=== PATIENT | female | born 1965 | race Caucasian/White ===

== ENCOUNTER 2019-05-03 11:23 | Inpatient (IN) | payer BC ==
[~2019-05-03] VITALS: Ht 170.2 cm; Wt 74.8 kg
[2019-05-03] MEDS ORDERED: ONDANSETRON PF 4 MG/2 ML VIAL. ONE (11:44)
[2019-05-03] MEDS ORDERED: DOXYCYCLINE HYCLATE 100 MG TABLET PO ONE (11:45)
[2019-05-03] MEDS ORDERED: cefTRIAXone IV Push 1 GM VIAL. IVP ONE (11:45)
[2019-05-03] MEDS ORDERED: fentaNYL PF VIAL 100 MCG/2 ML VIAL ONE (11:45)
[2019-05-03] MEDS ORDERED: ONDANSETRON PF 4 MG/2 ML VIAL. IV ONE (11:45)
[2019-05-03] MEDS ORDERED: fentaNYL PF VIAL 100 MCG/2 ML VIAL IV ONE ×2 (11:45→14:45)
--- NOTE | 2019-05-03 11:50 | PHYS DOC ---
Past Medical History Past Medical History: No Pertinent History Past Surgical History: Appendectomy Alcohol Use: Occasionally Drug Use: None Adult General Chief Complaint Chief Complaint: RIB PAIN HPI HPI Patient is a 54 year old f p/w right post rib pain fell foru days ago then drove here from [place] for the [employer] 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 Current Medications Current Medications Current Medications Medications (Trade) Dose Ordered Sig/Elías Start Time Stop Time Status Last Admin Dose Admin Ceftriaxone Sodium (Rocephin) 1 gm 1X ONCE 05/03/19 11:45 05/03/19 12:46 DC 05/03/19 13:15 1 GM Doxycycline Hyclate (Vibra-Tab) 100 mg 1X ONCE 05/03/19 11:45 05/03/19 12:47 DC 05/03/19 13:15 100 MG Fentanyl Citrate (Fentanyl 2ml Vial) 50 mcg 1X ONCE 05/03/19 11:45 05/03/19 12:47 DC 05/03/19 11:58 50 MCG Info (CONTRAST GIVEN -- Rx MONITORING) 1 each PRN DAILY PRN 05/03/19 13:00 05/05/19 12:59 Iohexol (Omnipaque 350 Mg/ml) 100 ml 1X ONCE 05/03/19 12:45 05/03/19 12:47 DC 05/03/19 12:56 100 ML Ketamine HCl (Ketamine) 20 mg 1X ONCE 05/03/19 12:45 05/03/19 12:46 DC 05/03/19 13:27 20 MG Ondansetron HCl (Zofran) 4 mg 1X ONCE 05/03/19 11:45 05/03/19 12:47 DC 05/03/19 11:57 4 MG Allergies Allergies Allergies Coded Allergies Type Severity Reaction Last Updated Verified No Known Drug Allergies 05/03/19 No Physical Exam Physical Exam Constitutional: Well developed, well nourished, mild distress, non-toxic appearance. [] HENT: Normocephalic, atraumatic, bilateral external ears normal, oropharynx moist, no oral exudates, nose normal. [] Eyes: PERRLA, EOMI, conjunctiva normal, no discharge. [] Neck: Normal range of motion, no tenderness, supple, no stridor. [] Cardiovascular:Heart rate regular rhythm, no murmur [] Lungs & Thorax: ttp right post chest, no crepitus, there is ecchymosis noted posterior upper chest area, there is rhonchi b/l lung bases. Abdomen: Bowel sounds normal, soft, no tenderness, no masses, no pulsatile masses. [] Skin: Warm, dry, no erythema, no rash. [] Back: No tenderness, no CVA tenderness. [] Extremities: No tenderness, no cyanosis, no clubbing, ROM intact, no edema. [] Neurologic: Alert and oriented X 3, normal motor function, normal sensory function, no focal deficits noted. [] Psychologic: Affect normal, judgement normal, mood normal. [] Current Patient Data Vital Signs Vital Signs Date Time Temp Pulse Resp B/P (MAP) Pulse Ox O2 Delivery O2 Flow Rate FiO2 05/03/19 11:58 16 05/03/19 11:31 97.9 98 151/83 (105) 84 Room Air 97.9 Lab Values Laboratory Tests Test 05/03/19 11:48 White Blood Count 11.5 x10^3/uL (4.0-11.0) H Red Blood Count 4.66 x10^6/uL (3.50-5.40) Hemoglobin 13.7 g/dL (12.0-15.5) Hematocrit 41.2 % (36.0-47.0) Mean Corpuscular Volume 88 fL (79-100) Mean Corpuscular Hemoglobin 29 pg (25-35) Mean Corpuscular Hemoglobin Concent 33 g/dL (31-37) Red Cell Distribution Width 13.9 % (11.5-14.5) Platelet Count 312 x10^3/uL (140-400) Neutrophils (%) (Auto) 62 % (31-73) Lymphocytes (%) (Auto) 31 % (24-48) Monocytes (%) (Auto) 5 % (0-9) Eosinophils (%) (Auto) 1 % (0-3) Basophils (%) (Auto) 1 % (0-3) Neutrophils # (Auto) 7.1 x10^3/uL (1.8-7.7) Lymphocytes # (Auto) 3.6 x10^3/uL (1.0-4.8) Monocytes # (Auto) 0.6 x10^3/uL (0.0-1.1) Eosinophils # (Auto) 0.2 x10^3/uL (0.0-0.7) Basophils # (Auto) 0.1 x10^3/uL (0.0-0.2) Prothrombin Time 12.4 SEC (11.7-14.0) Prothrombin Time INR 1.0 (0.8-1.1) Maternal Serum HCG Beta Subunit 4 mIU/mL (0-5) Sodium Level 141 mmol/L (136-145) Potassium Level 3.8 mmol/L (3.5-5.1) Chloride Level 105 mmol/L (98-107) Carbon Dioxide Level 25 mmol/L (21-32) Anion Gap 11 (6-14) Blood Urea Nitrogen 15 mg/dL (7-20) Creatinine 0.9 mg/dL (0.6-1.0) Estimated GFR (Cockcroft-Gault) 65.0 BUN/Creatinine Ratio 17 (6-20) Glucose Level 107 mg/dL (70-99) H Lactic Acid Level 0.8 mmol/L (0.4-2.0) Calcium Level 8.9 mg/dL (8.5-10.1) Total Bilirubin 0.4 mg/dL (0.2-1.0) Aspartate Amino Transferase (AST) 12 U/L (15-37) L Alanine Aminotransferase (ALT) 15 U/L (14-59) Alkaline Phosphatase 116 U/L (46-116) Troponin I Quantitative < 0.017 ng/mL (0.000-0.055) IT-Dhf-H-Type Natriuretic Peptide 164 pg/mL (0-124) H Total Protein 7.9 g/dL (6.4-8.2) Albumin 4.0 g/dL (3.4-5.0) Albumin/Globulin Ratio 1.0 (1.0-1.7) Laboratory Tests 05/03/19 11:48 Laboratory Tests 05/03/19 11:48 EKG EKG []EKG shows a normal sinus rhythm rate of 72 no acute ischemic changes noted intervals are normal interpreted by me the time of encounter Radiology/Procedures Radiology/Procedures [] Impressions: cxr lll pna and also multilpe right side rib fractrues Course & Med Decision Making Course & Med Decision Making Pertinent Labs and Imaging studies reviewed. (See chart for details) [] Impression: 1. Patchy bibasilar infiltrates seen in both lungs. 2. No convincing evidence for pulmonary embolism seen PQRS Compliance Statement: One or more of the following individualized dose reduction techniques were utilized for this examination: 1. Automated exposure control 2. Adjustment of the mA and/or kV according to patient size 3. Use of iterative reconstruction technique Electronically signed by: Alis Talley MD (05/03/2019 1:12 PM) [facility] DICTATED and SIGNED BY: ALIS TALLEY MD [facility] plan to admit for hypoxia and pneumonia recent trauma suspect rib fracture seen on plain x-ray. Patient received pain control and about the emergency room and was stable on nasal cannula oxygenation Dragon Disclaimer Dragon Disclaimer This electronic medical record was generated, in whole or in part, using a voice recognition dictation system. Departure Departure Impression: Primary Impression: Pneumonia Disposition: 09 ADMITTED INPATIENT Admitting Physician: ALLEY Condition: STABLE Referrals: UNKNOWN PCP NAME (PCP) RYAN ORTIZ MD May 03, 2019 11:50
--- NOTE | 2019-05-03 11:53 | RAD ---
Exam performed: One view chest. Indication: Trauma patient fell 5 days ago right lower chest. Date of Service: 05/03/2019 11:29 AM Comparison: None available. Single AP upright portable view chest findings: Cardiomediastinal silhouette is within limits of normal. There is a linear opacity in the right lung base likely atelectasis. Mild haziness overlying the left costophrenic angle . The bony structures are normal. Impression: Linear opacity right lung base atelectasis with haziness left costophrenic angle may be related to slight rotation overlying breast shadow. If symptoms persist, follow-up 2 views chest may be obtained. Electronically signed by: Alis Talley MD (05/03/2019 11:50 AM) [facility]
[2019-05-03 12:07] LABS: BASO # 0.1 x10^3/uL (0.0-0.2); BASO % 1 % (0-3); EOS # 0.2 x10^3/uL (0.0-0.7); EOS % 1 % (0-3); HEMATOCRIT 41.2 % (36.0-47.0); HEMOGLOBIN 13.7 g/dL (12.0-15.5); LYMPH # 3.6 x10^3/uL (1.0-4.8); LYMPH % 31 % (24-48); MEAN CORPUSCULAR HEMOGLOBIN 29 pg (25-35); MEAN CORPUSCULAR HGB CONC 33 g/dL (31-37); MEAN CORPUSCULAR VOLUME 88 fL (79-100); MONO # 0.6 x10^3/uL (0.0-1.1); MONO % 5 % (0-9); NEUT # 7.1 x10^3/uL (1.8-7.7); NEUT % 62 % (31-73); PLATELET COUNT 312 x10^3/uL (140-400); RED BLOOD COUNT 4.66 x10^6/uL (3.50-5.40); RED CELL DISTRIBUTION WIDTH 13.9 % (11.5-14.5); WHITE BLOOD COUNT 11.5 x10^3/uL (4.0-11.0)
[2019-05-03 12:14] LABS: PROTHROMBIN TIME PATIENT 12.4 SEC (11.7-14.0)
[2019-05-03 12:18] LABS: CALCIUM 8.9 mg/dL (8.5-10.1); CREATININE 0.9 mg/dL (0.6-1.0)
[2019-05-03 12:19] LABS: POTASSIUM 3.8 mmol/L (3.5-5.1)
[2019-05-03 12:25] LABS: TOTAL BILIRUBIN 0.4 mg/dL (0.2-1.0); TOTAL PROTEIN 7.9 g/dL (6.4-8.2)
[2019-05-03] MEDS ORDERED: KETAMINE HCL IN NACL, ISO-OSM 50 MG/5 ML SYRINGE IV ONE (12:45)
[2019-05-03] MEDS ORDERED: IOHEXOL 350 MG/ML 100 ML VIAL. IV ONE (12:45)
[2019-05-03] MEDS ORDERED: CONTRAST GIVEN. MC PRN (13:00)
--- NOTE | 2019-05-03 13:15 | RAD ---
Exam performed: CT pulmonary angiogram of the chest with contrast. Date: 05/03/2019. Comparison: Single view chest from earlier today Indication: Hypoxia Technique: Contiguous helical acquisitions are obtained through the chest during intravenous administration of [ 100 ] cc of [ Omnipaque 350 ] . [Sagittal and coronal MIP images were obtained and reviewed Findings: Patchy infiltrates are seen in the posterior aspect both lower lobes. Diffuse bilateral emphysematous changes are seen. There is no pleural effusion The structures at the thoracic inlet including both lobes of the thyroid gland appear normal. Pulmonary arterial opacification is adequate to evaluate for pulmonary embolus. There is no evidence for pulmonary embolism. The heart is normal in size. No pericardial effusion is seen. No mediastinal or hilar lymphadenopathy is seen. No pulmonary nodules are detected. Upper abdominal structures appear unremarkable. Osseous structures appear intact. Impression: 1. Patchy bibasilar infiltrates seen in both lungs. 2. No convincing evidence for pulmonary embolism seen PQRS Compliance Statement: One or more of the following individualized dose reduction techniques were utilized for this examination: 1. Automated exposure control 2. Adjustment of the mA and/or kV according to patient size 3. Use of iterative reconstruction technique Electronically signed by: Alis Talley MD (05/03/2019 1:12 PM) [facility]
[2019-05-03] MEDS ORDERED: fentaNYL PF VIAL 100 MCG/2 ML VIAL IV PRN (14:45)
[2019-05-03] MEDS ORDERED: ONDANSETRON PF 4 MG/2 ML VIAL. IV PRN ×2 (14:45→16:30)
[2019-05-03] MEDS ORDERED: ONDANSETRON PF 4 MG/2 ML VIAL. IVP ONE (14:45)
[2019-05-03 15:35] VITALS: BP 117/75
--- NOTE | 2019-05-03 16:12 | PDOC1 ---
History and Physical Date of Admission Date of Admission DATE: 05/03/19 TIME: 16:08 Identification/Chief Complaint Chief Complaint Patient is a 54 year old f p/w right post rib pain WHO fell 4 days ago at home on steps, then drove here from [place] for the [employer] race , states spasm pain right posterior chest area, coughing having severe spasms //pain worse///sat 85 ra in triage cta neg for pe Past Medical History Past Medical History Past Medical History Past Medical History: No Pertinent History Past Surgical History: Appendectomy Alcohol Use: Occasionally Drug Use: None FHX OBESITY Family History Family History: High Cholestrol, Hypertension Social History Smoke: <1 pack per day ALCOHOL: occassional Drugs: None Current Problem List Problem List Problems Medical Problems: (1) Pneumonia Status: Acute Current Medications Current Medications Current Medications Ondansetron HCl (Zofran) 4 mg STK-MED ONCE .ROUTE ; Start 05/03/19 at 11:44; Stop 05/03/19 at 11:45; Status DC Fentanyl Citrate (Fentanyl 2ml Vial) 100 mcg STK-MED ONCE .ROUTE ; Start 05/03/19 at 11:45; Stop 05/03/19 at 11:45; Status DC Ceftriaxone Sodium (Rocephin) 1 gm 1X ONCE IVP Last administered on 05/03/19at 13:15; Start 05/03/19 at 11:45; Stop 05/03/19 at 12:46; Status DC Doxycycline Hyclate (Vibra-Tab) 100 mg 1X ONCE PO Last administered on 05/03/19at 13:15; Start 05/03/19 at 11:45; Stop 05/03/19 at 12:47; Status DC Fentanyl Citrate (Fentanyl 2ml Vial) 50 mcg 1X ONCE IV Last administered on 05/03/19at 11:58; Start 05/03/19 at 11:45; Stop 05/03/19 at 12:47; Status DC Ondansetron HCl (Zofran) 4 mg 1X ONCE IV Last administered on 05/03/19at 11:57; Start 05/03/19 at 11:45; Stop 05/03/19 at 12:47; Status DC Iohexol (Omnipaque 350 Mg/ml) 100 ml 1X ONCE IV Last administered on 05/03/19at 12:56; Start 05/03/19 at 12:45; Stop 05/03/19 at 12:47; Status DC Ketamine HCl (Ketamine) 20 mg 1X ONCE IV Last administered on 05/03/19at 13:27; Start 05/03/19 at 12:45; Stop 05/03/19 at 12:46; Status DC Info (CONTRAST GIVEN -- Rx MONITORING) 1 each PRN DAILY PRN MC SEE COMMENTS; Start 05/03/19 at 13:00; Stop 05/05/19 at 12:59 Ondansetron HCl (Zofran) 4 mg 1X ONCE IVP Last administered on 05/03/19at 14:53; Start 05/03/19 at 14:45; Stop 05/03/19 at 14:47; Status DC Fentanyl Citrate (Fentanyl 2ml Vial) 50 mcg 1X ONCE IV Last administered on 05/03/19at 14:54; Start 05/03/19 at 14:45; Stop 05/03/19 at 14:47; Status DC Ondansetron HCl (Zofran) 4 mg PRN Q8HRS PRN IV NAUSEA/VOMITING; Start 05/03/19 at 14:45; Stop 05/04/19 at 14:44 Fentanyl Citrate (Fentanyl 2ml Vial) 50 mcg PRN Q1HR PRN IV PAIN Last administered on 05/03/19at 15:23; Start 05/03/19 at 14:45; Stop 05/04/19 at 14:44 Allergies Allergies: Coded Allergies: No Known Drug Allergies (Unverified , 05/03/19) ROS Review of System Review of Systems Review of Systems Constitutional: Denies fever or chills [] Eyes: Denies change in visual acuity, redness, or eye pain [] Neurologic: Denies headache, focal weakness or sensory changes [] Endocrine: Denies polyuria or polydipsia [] 14 PT systems were reviewed and found to be within normal limits, except as documented Eyes: No Blurry vision, No Decreased vision, No Double vision, No Dry eyes, No Excessive tearing, No Eye Pain, No Itchy Eyes, No Loss of vision, No Photophobia, No Scotomata, No Uses contacts, No Uses glasses, No Other HEENT: No: Heacaches, Visual Changes, Hearing change, Nasal congestion, Nasal discharge, Oral lesions, Sinus pain, Sore Throat, Epistaxis, Sneezing, Snoring, Tinnitus, Vertigo, Vocal changes, Other ALLERGY AND IMMUNOLOGY: No: Hives, Insect Bite Sensitivity, Itchy/Watery Eyes, Nasal Congestion, Post Nasal Drip, Seasonal Allergies, Other Hematological and Lymphatic: No: Bleeding Problems, Blood Clots, Blood Transfusions, Brusing, Night Sweats, Pallor, Swollen Lymph Nodes, Other Respiratory: YES: Cough, Pleuritic Pain, Shortness of breath, SOB with excertion, Sputum Changes Gastrointestinal: Yes Nausea; No Vomiting, No Abdominal Pain, No Diarrhea, No Constipation, No Melena, No Hematochezia, No Other Musculoskeletal: Yes Gait Disturbance Neurological: Yes Gait Disturbance Physical Exam Physical Exam Physical Exam Physical Exam Constitutional: Well developed, well nourished, mild distress, non-toxic appearance. [] HENT: Normocephalic, atraumatic, bilateral external ears normal, oropharynx moist, no oral exudates, nose normal. [] Eyes: PERRLA, EOMI, conjunctiva normal, no discharge. [] Neck: Normal range of motion, no tenderness, supple, no stridor. [] Cardiovascular:Heart rate regular rhythm, no murmur [] Lungs & Thorax: ttp right post chest, no crepitus, there is ecchymosis noted posterior upper chest area, there is rhonchi b/l lung bases. Abdomen: Bowel sounds normal, soft, no tenderness, no masses, no pulsatile masses. [] Skin: Warm, dry, no erythema, no rash. [] Back: No tenderness, no CVA tenderness. [] Extremities: No tenderness, no cyanosis, no clubbing, ROM intact, no edema. [] Neurologic: Alert and oriented X 3, normal motor function, normal sensory function, no focal deficits noted. [] Psychologic: Affect normal, judgement normal, mood normal. [] General: Alert, Oriented X3, Cooperative, mild distress HEENT: Atraumatic, EOMI, Mucous membr. moist/pink Lungs: Other (rll crackles) Heart: RRR, no gallops Breasts: Not examined Abdomen: Normal bowel sounds, Soft Rectal Exam: not examined PELVIC: Examination not indicated Extremities: No cyanosis Neuro: Normal speech, Cranial nerves 3-12 NL Psych/Mental Status: Mental status NL, Mood NL Vitals Vitals Vital Signs Date Time Temp Pulse Resp B/P (MAP) Pulse Ox O2 Delivery O2 Flow Rate FiO2 05/03/19 15:24 16 05/03/19 15:00 64 124/69 (87) 94 Room Air 05/03/19 11:31 97.9 97.9 Labs Labs Laboratory Tests Test 05/03/19 11:48 White Blood Count 11.5 x10^3/uL (4.0-11.0) Red Blood Count 4.66 x10^6/uL (3.50-5.40) Hemoglobin 13.7 g/dL (12.0-15.5) Hematocrit 41.2 % (36.0-47.0) Mean Corpuscular Volume 88 fL (79-100) Mean Corpuscular Hemoglobin 29 pg (25-35) Mean Corpuscular Hemoglobin Concent 33 g/dL (31-37) Red Cell Distribution Width 13.9 % (11.5-14.5) Platelet Count 312 x10^3/uL (140-400) Neutrophils (%) (Auto) 62 % (31-73) Lymphocytes (%) (Auto) 31 % (24-48) Monocytes (%) (Auto) 5 % (0-9) Eosinophils (%) (Auto) 1 % (0-3) Basophils (%) (Auto) 1 % (0-3) Neutrophils # (Auto) 7.1 x10^3/uL (1.8-7.7) Lymphocytes # (Auto) 3.6 x10^3/uL (1.0-4.8) Monocytes # (Auto) 0.6 x10^3/uL (0.0-1.1) Eosinophils # (Auto) 0.2 x10^3/uL (0.0-0.7) Basophils # (Auto) 0.1 x10^3/uL (0.0-0.2) Prothrombin Time 12.4 SEC (11.7-14.0) Prothromb Time International Ratio 1.0 (0.8-1.1) Maternal Serum HCG Beta Subunit 4 mIU/mL (0-5) Sodium Level 141 mmol/L (136-145) Potassium Level 3.8 mmol/L (3.5-5.1) Chloride Level 105 mmol/L (98-107) Carbon Dioxide Level 25 mmol/L (21-32) Anion Gap 11 (6-14) Blood Urea Nitrogen 15 mg/dL (7-20) Creatinine 0.9 mg/dL (0.6-1.0) Estimated GFR (Cockcroft-Gault) 65.0 BUN/Creatinine Ratio 17 (6-20) Glucose Level 107 mg/dL (70-99) Lactic Acid Level 0.8 mmol/L (0.4-2.0) Calcium Level 8.9 mg/dL (8.5-10.1) Total Bilirubin 0.4 mg/dL (0.2-1.0) Aspartate Amino Transf (AST/SGOT) 12 U/L (15-37) Alanine Aminotransferase (ALT/SGPT) 15 U/L (14-59) Alkaline Phosphatase 116 U/L (46-116) Troponin I Quantitative < 0.017 ng/mL (0.000-0.055) ME-Fbf-Q-Type Natriuretic Peptide 164 pg/mL (0-124) Total Protein 7.9 g/dL (6.4-8.2) Albumin 4.0 g/dL (3.4-5.0) Albumin/Globulin Ratio 1.0 (1.0-1.7) Laboratory Tests Test 05/03/19 11:48 White Blood Count 11.5 x10^3/uL (4.0-11.0) Red Blood Count 4.66 x10^6/uL (3.50-5.40) Hemoglobin 13.7 g/dL (12.0-15.5) Hematocrit 41.2 % (36.0-47.0) Mean Corpuscular Volume 88 fL (79-100) Mean Corpuscular Hemoglobin 29 pg (25-35) Mean Corpuscular Hemoglobin Concent 33 g/dL (31-37) Red Cell Distribution Width 13.9 % (11.5-14.5) Platelet Count 312 x10^3/uL (140-400) Neutrophils (%) (Auto) 62 % (31-73) Lymphocytes (%) (Auto) 31 % (24-48) Monocytes (%) (Auto) 5 % (0-9) Eosinophils (%) (Auto) 1 % (0-3) Basophils (%) (Auto) 1 % (0-3) Neutrophils # (Auto) 7.1 x10^3/uL (1.8-7.7) Lymphocytes # (Auto) 3.6 x10^3/uL (1.0-4.8) Monocytes # (Auto) 0.6 x10^3/uL (0.0-1.1) Eosinophils # (Auto) 0.2 x10^3/uL (0.0-0.7) Basophils # (Auto) 0.1 x10^3/uL (0.0-0.2) Prothrombin Time 12.4 SEC (11.7-14.0) Prothromb Time International Ratio 1.0 (0.8-1.1) Maternal Serum HCG Beta Subunit 4 mIU/mL (0-5) Sodium Level 141 mmol/L (136-145) Potassium Level 3.8 mmol/L (3.5-5.1) Chloride Level 105 mmol/L (98-107) Carbon Dioxide Level 25 mmol/L (21-32) Anion Gap 11 (6-14) Blood Urea Nitrogen 15 mg/dL (7-20) Creatinine 0.9 mg/dL (0.6-1.0) Estimated GFR (Cockcroft-Gault) 65.0 BUN/Creatinine Ratio 17 (6-20) Glucose Level 107 mg/dL (70-99) Lactic Acid Level 0.8 mmol/L (0.4-2.0) Calcium Level 8.9 mg/dL (8.5-10.1) Total Bilirubin 0.4 mg/dL (0.2-1.0) Aspartate Amino Transf (AST/SGOT) 12 U/L (15-37) Alanine Aminotransferase (ALT/SGPT) 15 U/L (14-59) Alkaline Phosphatase 116 U/L (46-116) Troponin I Quantitative < 0.017 ng/mL (0.000-0.055) GF-Swx-B-Type Natriuretic Peptide 164 pg/mL (0-124) Total Protein 7.9 g/dL (6.4-8.2) Albumin 4.0 g/dL (3.4-5.0) Albumin/Globulin Ratio 1.0 (1.0-1.7) Images Images Exam performed: One view chest. Indication: Trauma patient fell 5 days ago right lower chest. Date of Service: 05/03/2019 11:29 AM Comparison: None available. Single AP upright portable view chest findings: Cardiomediastinal silhouette is within limits of normal. There is a linear opacity in the right lung base likely atelectasis. Mild haziness overlying the left costophrenic angle . The bony structures are normal. Impression: Linear opacity right lung base atelectasis with haziness left costophrenic angle may be related to slight rotation overlying breast shadow. If symptoms persist, follow-up 2 views chest may be obtained. Electronically signed by: Alis Talley MD (05/03/2019 11:50 AM) [facility] DICTATED and SIGNED BY: ALIS TALLEY MD DATE: 05/03/19 1150 PATIENT: RHEA SALESCOUNT: [id number] : 1965 LOCATION: ER AGE: 54 SEX: F EXAM STATUS: REG ER ORD. PHYSICIAN: RYAN ORTIZ MD REASON: hypoxia, r/o pe PROCEDURE: CT ANGIOGRAPHY CHEST Exam performed: CT pulmonary angiogram of the chest with contrast. Date: 05/03/2019. Comparison: Single view chest from earlier today Indication: Hypoxia Technique: Contiguous helical acquisitions are obtained through the chest during intravenous administration of [ 100 ] cc of [ Omnipaque 350 ] . [Sagittal and coronal MIP images were obtained and reviewed Findings: Patchy infiltrates are seen in the posterior aspect both lower lobes. Diffuse bilateral emphysematous changes are seen. There is no pleural effusion The structures at the thoracic inlet including both lobes of the thyroid gland appear normal. Pulmonary arterial opacification is adequate to evaluate for pulmonary embolus. There is no evidence for pulmonary embolism. The heart is normal in size. No pericardial effusion is seen. No mediastinal or hilar lymphadenopathy is seen. No pulmonary nodules are detected. Upper abdominal structures appear unremarkable. Osseous structures appear intact. Impression: 1. Patchy bibasilar infiltrates seen in both lungs. 2. No convincing evidence for pulmonary embolism seen PQRS Compliance Statement: One or more of the following individualized dose reduction techniques were utilized for this examination: 1. Automated exposure control 2. Adjustment of the mA and/or kV according to patient size 3. Use of iterative reconstruction technique Electronically signed by: Alis Talley MD (05/03/2019 1:12 PM) [facility] VTE Prophylaxis Ordered VTE Prophylaxis Devices: Yes VTE Pharmacological Prophylaxi: Yes Assessment/Plan Assessment/Plan IMPRESSION Patchy infiltrates are seen in the posterior aspect both lower lobes. C/W PNEUMONIA Acute hypoxic resp failure Diffuse bilateral emphysematous changes are seen. There is no pleural effusion TOBACCO ABUSE FALL RIGHT POST CHEST WALL CONTUSION POA PLAN ADMIT IV ANTIBIOTICS DUONEBS QID dvt prophylaxis pulm consult iv pain control CTA CHEST IV ZOFRAN 4 MG Q 4 HRS PRN smoking cessation education discussed 74 MIN PT EXAM, CHART REVIEW, > 50% OF TIME SPENT WITH EXAM, CHART REVIEW, PT CARE COORDINATION MELVI HAQ MD May 03, 2019 16:12
[2019-05-03] MEDS ORDERED: DOCUSATE SODIUM 100 MG CAPSULE. PO PRN (16:30)
[2019-05-03] MEDS ORDERED: MAG HYDROX/ALUMINUM HYD/SIMETH 30 ML ORAL.SUSP PO PRN (16:30)
[2019-05-03] MEDS ORDERED: 0.9 % SODIUM CHLORIDE 10 ML DISP.SYRIN. IV PRN (16:30)
[2019-05-03] MEDS ORDERED: cloNIDine HCL 0.1 MG TABLET PO PRN (16:30)
[2019-05-03] MEDS ORDERED: ACETAMINOPHEN 325 MG TABLET. PO PRN (16:30)
[2019-05-03] MEDS ORDERED: LORazepam 0.5 MG TABLET PO PRN (16:30)
[2019-05-03] MEDS ORDERED: HYDROmorphone 2 MG/ML VIAL IV PRN (17:00)
[2019-05-03] MEDS: guaiFENesin ORAL 200 MG/10 ML LIQUID. PO PRN (18:20)
[2019-05-03] MEDS: CYCLOBENZAPRINE 10 MG TABLET. PO PRN (18:20)
[2019-05-03] MEDS: IBUPROFEN 400 MG TABLET. PO PRN (18:20)
[2019-05-03] MEDS: PIPERACILLIN/TAZOBACTAM 3.375 GM in IV NORMAL SALINE 50ML 50 ML IV SCH ×2 (18:26→23:15)
[2019-05-03] MEDS: IV NORMAL SALINE 1000ML BAG 1,000 ML IV SCH (18:29)
[2019-05-03] MEDS: traMADol 50 MG TABLET PO PRN (18:38)
[2019-05-03 19:04] VITALS: BP 113/68
[2019-05-03 19:17] LABS: BILIRUBIN,URINE NEGATIVE (NEG); CLARITY,URINE CLEAR; COLOR,URINE YELLOW; NITRITE,URINE NEGATIVE (NEG); PROTEIN,URINE NEGATIVE (NEG-TRACE); UROBILINOGEN,URINE 0.2 mg/dL (0.2 mg/dL)
[2019-05-03 19:26] LABS: BARBITURATES NEG (NEG); BENZODIAZEPINES NEG (NEG); CANNABINOIDS NEG (NEG); COCAINE NEG (NEG); METHADONE NEG (NEG); OPIATES NEG (NEG); PHENCYCLIDINE NEG (NEG)
[2019-05-03 19:27] LABS: AMPHETAMINE/METHAMPHETAMINE NEG (NEG)
[2019-05-03 19:35] LABS: BACTERIA,URINE MODERATE /HPF (0-FEW); SQUAMOUS EPITHELIAL CELL,UR MANY /LPF
[2019-05-03] MEDS: IPRATRPIUM/ALBUTEROL 0.5/2.5MG 3 ML NEBU. NEB SCH ×2 (20:30→20:38)
[2019-05-03 23:10] VITALS: BP 123/53
[2019-05-03] MEDS: DOXYCYCLINE HYCLATE 100 MG TABLET PO SCH (23:16)
[2019-05-04] MEDS: IPRATRPIUM/ALBUTEROL 0.5/2.5MG 3 ML NEBU. NEB SCH ×6 (00:26→21:03)
[2019-05-04] MEDS: guaiFENesin ORAL 200 MG/10 ML LIQUID. PO PRN ×3 (02:06→15:12)
[2019-05-04] MEDS: CYCLOBENZAPRINE 10 MG TABLET. PO PRN ×4 (02:09→20:54)
[2019-05-04] MEDS: IBUPROFEN 400 MG TABLET. PO PRN ×4 (02:13→20:55)
[2019-05-04] MEDS: traMADol 50 MG TABLET PO PRN ×4 (02:13→20:55)
[2019-05-04 03:34] VITALS: BP 97/53
[2019-05-04 05:25] LABS: BASO % 0 % (0-3); EOS # 0.2 x10^3/uL (0.0-0.7); EOS % 2 % (0-3); HEMATOCRIT 34.1 % (36.0-47.0); HEMOGLOBIN 11.3 g/dL (12.0-15.5); LYMPH # 4.3 x10^3/uL (1.0-4.8); LYMPH % 44 % (24-48); MEAN CORPUSCULAR HEMOGLOBIN 29 pg (25-35); MEAN CORPUSCULAR HGB CONC 33 g/dL (31-37); MEAN CORPUSCULAR VOLUME 89 fL (79-100); MONO # 0.6 x10^3/uL (0.0-1.1); MONO % 6 % (0-9); NEUT # 4.8 x10^3/uL (1.8-7.7); NEUT % 49 % (31-73); PLATELET COUNT 247 x10^3/uL (140-400); RED BLOOD COUNT 3.85 x10^6/uL (3.50-5.40); WHITE BLOOD COUNT 9.9 x10^3/uL (4.0-11.0)
[2019-05-04 05:34] LABS: ALBUMIN/GLOBULIN RATIO 0.9 (1.0-1.7); CALCIUM 8.3 mg/dL (8.5-10.1); CREATININE 0.9 mg/dL (0.6-1.0); POTASSIUM 3.7 mmol/L (3.5-5.1); TOTAL BILIRUBIN 0.3 mg/dL (0.2-1.0); TOTAL PROTEIN 6.2 g/dL (6.4-8.2)
[2019-05-04] MEDS: PIPERACILLIN/TAZOBACTAM 3.375 GM in IV NORMAL SALINE 50ML 50 ML IV SCH ×3 (05:55→17:58)
[2019-05-04] MEDS: IV NORMAL SALINE 1000ML BAG 1,000 ML IV SCH ×3 (05:55→20:59)
[2019-05-04 07:00] VITALS: BP 96/48
--- NOTE | 2019-05-04 08:13 | RAD ---
Ribs right with PA chest History: Pain status post fall PA view of the chest and dedicated views of the left ribs were obtained. There is mildly displaced fractures of the posterior lateral right sixth and seventh ribs. There is a round mass in the right lung base. There is patchy opacities in the lung bases. The heart and pulmonary vessels appear normal. Impression: 1. Right-sided rib fractures. No pneumothorax. 2. Basilar pulmonary infiltrates could be discoid atelectasis or pneumonia. Recommend follow-up chest x-ray complete resolution in order to exclude possible underlying neoplasm. End impression Electronically signed by: Ernesto Fritz III, MD (05/04/2019 8:10 AM) [facility]
[2019-05-04] MEDS: ENOXAPARIN 40 MG/0.4 ML SYRINGE. SQ SCH ×2 (09:00→09:11)
--- NOTE | 2019-05-04 09:02 | PDOC ---
Provider Note Provider Note [id number] acute resp fail pneumonia rib fx cont abx BD MAE SAUDNERS MD May 04, 2019 09:02
[2019-05-04] MEDS: DOXYCYCLINE HYCLATE 100 MG TABLET PO SCH ×2 (09:11→20:55)
--- NOTE | 2019-05-04 09:41 | PDOC ---
PROGRESS NOTES History of Present Illness History of Present Illness VTE Prophylaxis Ordered VTE Prophylaxis Devices: Yes VTE Pharmacological Prophylaxi: Yes Assessment/Plan Assessment/Plan IMPRESSION Patchy infiltrates are seen in the posterior aspect both lower lobes. C/W PNEUMONIA Acute hypoxic resp failure Diffuse bilateral emphysematous changes are seen. There is no pleural effusion TOBACCO ABUSE FALL RIGHT POST CHEST WALL CONTUSION POA on cxr mildly displaced fractures of the posterior lateral right sixth and seventh ribs. //round mass in the right lung base. There are patchy opacities in the lung bases MILD HYPOTENSION , dehydration PLAN ADMIT IV ANTIBIOTICS, zosyn, doxy DUONEBS QID dvt prophylaxis pulm consult iv pain control CTA CHEST IV ZOFRAN 4 MG Q 4 HRS PRN smoking cessation education discussed legionella urinary ag sputum culture IV FLUID BOLUS 1000CC X 1 TODAY 05/04 wanted to leave earlier, was hypoxic on room air , now agrees to stay, consider d/c in AM ON LEVAQUIN X 10 DAYS 37 MIN PT EXAM, CHART REVIEW, > 50% OF TIME SPENT WITH EXAM, CHART REVIEW, PT CARE COORDINATION Vitals Vitals Vital Signs Date Time Temp Pulse Resp B/P (MAP) Pulse Ox O2 Delivery O2 Flow Rate FiO2 05/04/19 08:31 89 Room Air 05/04/19 07:00 98.9 71 16 96/48 (64) 2.0 98.9 Physical Exam Physical Exam hypoxia noted on room air spo2 88% on room air at rest General: Alert, Oriented X3, Cooperative, No acute distress Heart: Regular rate, Normal S1, Normal S2 Lungs: Crackles Abdomen: Normal bowel sounds, Soft, No hepatosplenomegaly Extremities: No clubbing, No cyanosis, No edema, No tenderness/swelling Skin: No significant lesion Labs LABS Ribs right with PA chest History: Pain status post fall PA view of the chest and dedicated views of the left ribs were obtained. There is mildly displaced fractures of the posterior lateral right sixth and seventh ribs. There is a round mass in the right lung base. There is patchy opacities in the lung bases. The heart and pulmonary vessels appear normal. Impression: 1. Right-sided rib fractures. No pneumothorax. 2. Basilar pulmonary infiltrates could be discoid atelectasis or pneumonia. Recommend follow-up chest x-ray complete resolution in order to exclude possible underlying neoplasm. End impression Electronically signed by: Prince Fritz III, MD (05/04/2019 8:10 AM) [facility] DICTATED and SIGNED BY: PRINCE FRITZ III, MD DATE: 05/04/19809 Laboratory Tests Test 05/03/19 11:48 05/03/19 18:00 05/04/19 04:00 White Blood Count 11.5 x10^3/uL (4.0-11.0) 9.9 x10^3/uL (4.0-11.0) Red Blood Count 4.66 x10^6/uL (3.50-5.40) 3.85 x10^6/uL (3.50-5.40) Hemoglobin 13.7 g/dL (12.0-15.5) 11.3 g/dL (12.0-15.5) Hematocrit 41.2 % (36.0-47.0) 34.1 % (36.0-47.0) Mean Corpuscular Volume 88 fL (79-100) 89 fL (79-100) Mean Corpuscular Hemoglobin 29 pg (25-35) 29 pg (25-35) Mean Corpuscular Hemoglobin Concent 33 g/dL (31-37) 33 g/dL (31-37) Red Cell Distribution Width 13.9 % (11.5-14.5) 14.0 % (11.5-14.5) Platelet Count 312 x10^3/uL (140-400) 247 x10^3/uL (140-400) Neutrophils (%) (Auto) 62 % (31-73) 49 % (31-73) Lymphocytes (%) (Auto) 31 % (24-48) 44 % (24-48) Monocytes (%) (Auto) 5 % (0-9) 6 % (0-9) Eosinophils (%) (Auto) 1 % (0-3) 2 % (0-3) Basophils (%) (Auto) 1 % (0-3) 0 % (0-3) Neutrophils # (Auto) 7.1 x10^3/uL (1.8-7.7) 4.8 x10^3/uL (1.8-7.7) Lymphocytes # (Auto) 3.6 x10^3/uL (1.0-4.8) 4.3 x10^3/uL (1.0-4.8) Monocytes # (Auto) 0.6 x10^3/uL (0.0-1.1) 0.6 x10^3/uL (0.0-1.1) Eosinophils # (Auto) 0.2 x10^3/uL (0.0-0.7) 0.2 x10^3/uL (0.0-0.7) Basophils # (Auto) 0.1 x10^3/uL (0.0-0.2) 0.0 x10^3/uL (0.0-0.2) Prothrombin Time 12.4 SEC (11.7-14.0) Prothromb Time International Ratio 1.0 (0.8-1.1) Maternal Serum HCG Beta Subunit 4 mIU/mL (0-5) Sodium Level 141 mmol/L (136-145) 139 mmol/L (136-145) Potassium Level 3.8 mmol/L (3.5-5.1) 3.7 mmol/L (3.5-5.1) Chloride Level 105 mmol/L (98-107) 106 mmol/L (98-107) Carbon Dioxide Level 25 mmol/L (21-32) 23 mmol/L (21-32) Anion Gap 11 (6-14) 10 (6-14) Blood Urea Nitrogen 15 mg/dL (7-20) 12 mg/dL (7-20) Creatinine 0.9 mg/dL (0.6-1.0) 0.9 mg/dL (0.6-1.0) Estimated GFR (Cockcroft-Gault) 65.0 65.0 BUN/Creatinine Ratio 17 (6-20) 13 (6-20) Glucose Level 107 mg/dL (70-99) 139 mg/dL (70-99) Lactic Acid Level 0.8 mmol/L (0.4-2.0) Calcium Level 8.9 mg/dL (8.5-10.1) 8.3 mg/dL (8.5-10.1) Total Bilirubin 0.4 mg/dL (0.2-1.0) 0.3 mg/dL (0.2-1.0) Aspartate Amino Transf (AST/SGOT) 12 U/L (15-37) 9 U/L (15-37) Alanine Aminotransferase (ALT/SGPT) 15 U/L (14-59) 12 U/L (14-59) Alkaline Phosphatase 116 U/L (46-116) 88 U/L (46-116) Troponin I Quantitative < 0.017 ng/mL (0.000-0.055) FN-Zyt-L-Type Natriuretic Peptide 164 pg/mL (0-124) Total Protein 7.9 g/dL (6.4-8.2) 6.2 g/dL (6.4-8.2) Albumin 4.0 g/dL (3.4-5.0) 3.0 g/dL (3.4-5.0) Albumin/Globulin Ratio 1.0 (1.0-1.7) 0.9 (1.0-1.7) Urine Collection Type Unknown Urine Color Yellow Urine Clarity Clear Urine pH 5.0 Urine Specific [place] >=1.030 Urine Protein Negative mg/dL (NEG-TRACE) Urine Glucose (UA) Negative mg/dL (NEG) Urine Ketones (Stick) Negative mg/dL (NEG) Urine Blood Trace (NEG) Urine Nitrite Negative (NEG) Urine Bilirubin Negative (NEG) Urine Urobilinogen Dipstick 0.2 mg/dL (0.2 mg/dL) Urine Leukocyte Esterase Negative (NEG) Urine RBC 1-2 /HPF (0-2) Urine WBC 5-10 /HPF (0-4) Urine Squamous Epithelial Cells Many /LPF Urine Bacteria Moderate /HPF (0-FEW) Urine Opiates Screen Neg (NEG) Urine Methadone Screen Neg (NEG) Urine Barbiturates Neg (NEG) Urine Phencyclidine Screen Neg (NEG) Urine Amphetamine/Methamphetamine Neg (NEG) Urine Benzodiazepines Screen Neg (NEG) Urine Cocaine Screen Neg (NEG) Urine Cannabinoids Screen Neg (NEG) Urine Ethyl Alcohol Neg (NEG) Assessment and Plan Assessmemt and Plan Problems Medical Problems: (1) Pneumonia Status: Acute User: Foreign Duncan RT Date: 05/04/19 08:31 Type: RT Flowsheet Neb Treatment Type * Hand Held Neb Neb Treatment Mode * Mouthpiece Pulse * 80 beats/min Breath Sounds * Crackles Cough Description * Non Productive Oxygen Delivery Method * Room Air Bedside Pulse Oximetry * 89 % User: Foreign Duncan RT Date: 05/04/19 08:31 Type: RT Flowsheet -------- Neb Treatment Type Hand Held Neb Neb Treatment Mode Mouthpiece Pulse 80 beats/min Breath Sounds Crackles Cough Description Non Productive Oxygen Delivery Method Room Air Bedside Pulse Oximetry 89 % Comment Review of Relevant I have reviewed the following items lacy (where applicable) has been applied. Labs Laboratory Tests Test 05/03/19 11:48 05/03/19 18:00 05/04/19 04:00 White Blood Count 11.5 x10^3/uL (4.0-11.0) 9.9 x10^3/uL (4.0-11.0) Red Blood Count 4.66 x10^6/uL (3.50-5.40) 3.85 x10^6/uL (3.50-5.40) Hemoglobin 13.7 g/dL (12.0-15.5) 11.3 g/dL (12.0-15.5) Hematocrit 41.2 % (36.0-47.0) 34.1 % (36.0-47.0) Mean Corpuscular Volume 88 fL (79-100) 89 fL (79-100) Mean Corpuscular Hemoglobin 29 pg (25-35) 29 pg (25-35) Mean Corpuscular Hemoglobin Concent 33 g/dL (31-37) 33 g/dL (31-37) Red Cell Distribution Width 13.9 % (11.5-14.5) 14.0 % (11.5-14.5) Platelet Count 312 x10^3/uL (140-400) 247 x10^3/uL (140-400) Neutrophils (%) (Auto) 62 % (31-73) 49 % (31-73) Lymphocytes (%) (Auto) 31 % (24-48) 44 % (24-48) Monocytes (%) (Auto) 5 % (0-9) 6 % (0-9) Eosinophils (%) (Auto) 1 % (0-3) 2 % (0-3) Basophils (%) (Auto) 1 % (0-3) 0 % (0-3) Neutrophils # (Auto) 7.1 x10^3/uL (1.8-7.7) 4.8 x10^3/uL (1.8-7.7) Lymphocytes # (Auto) 3.6 x10^3/uL (1.0-4.8) 4.3 x10^3/uL (1.0-4.8) Monocytes # (Auto) 0.6 x10^3/uL (0.0-1.1) 0.6 x10^3/uL (0.0-1.1) Eosinophils # (Auto) 0.2 x10^3/uL (0.0-0.7) 0.2 x10^3/uL (0.0-0.7) Basophils # (Auto) 0.1 x10^3/uL (0.0-0.2) 0.0 x10^3/uL (0.0-0.2) Prothrombin Time 12.4 SEC (11.7-14.0) Prothromb Time International Ratio 1.0 (0.8-1.1) Maternal Serum HCG Beta Subunit 4 mIU/mL (0-5) Sodium Level 141 mmol/L (136-145) 139 mmol/L (136-145) Potassium Level 3.8 mmol/L (3.5-5.1) 3.7 mmol/L (3.5-5.1) Chloride Level 105 mmol/L (98-107) 106 mmol/L (98-107) Carbon Dioxide Level 25 mmol/L (21-32) 23 mmol/L (21-32) Anion Gap 11 (6-14) 10 (6-14) Blood Urea Nitrogen 15 mg/dL (7-20) 12 mg/dL (7-20) Creatinine 0.9 mg/dL (0.6-1.0) 0.9 mg/dL (0.6-1.0) Estimated GFR (Cockcroft-Gault) 65.0 65.0 BUN/Creatinine Ratio 17 (6-20) 13 (6-20) Glucose Level 107 mg/dL (70-99) 139 mg/dL (70-99) Lactic Acid Level 0.8 mmol/L (0.4-2.0) Calcium Level 8.9 mg/dL (8.5-10.1) 8.3 mg/dL (8.5-10.1) Total Bilirubin 0.4 mg/dL (0.2-1.0) 0.3 mg/dL (0.2-1.0) Aspartate Amino Transf (AST/SGOT) 12 U/L (15-37) 9 U/L (15-37) Alanine Aminotransferase (ALT/SGPT) 15 U/L (14-59) 12 U/L (14-59) Alkaline Phosphatase 116 U/L (46-116) 88 U/L (46-116) Troponin I Quantitative < 0.017 ng/mL (0.000-0.055) DI-Gmh-F-Type Natriuretic Peptide 164 pg/mL (0-124) Total Protein 7.9 g/dL (6.4-8.2) 6.2 g/dL (6.4-8.2) Albumin 4.0 g/dL (3.4-5.0) 3.0 g/dL (3.4-5.0) Albumin/Globulin Ratio 1.0 (1.0-1.7) 0.9 (1.0-1.7) Urine Collection Type Unknown Urine Color Yellow Urine Clarity Clear Urine pH 5.0 Urine Specific [place] >=1.030 Urine Protein Negative mg/dL (NEG-TRACE) Urine Glucose (UA) Negative mg/dL (NEG) Urine Ketones (Stick) Negative mg/dL (NEG) Urine Blood Trace (NEG) Urine Nitrite Negative (NEG) Urine Bilirubin Negative (NEG) Urine Urobilinogen Dipstick 0.2 mg/dL (0.2 mg/dL) Urine Leukocyte Esterase Negative (NEG) Urine RBC 1-2 /HPF (0-2) Urine WBC 5-10 /HPF (0-4) Urine Squamous Epithelial Cells Many /LPF Urine Bacteria Moderate /HPF (0-FEW) Urine Opiates Screen Neg (NEG) Urine Methadone Screen Neg (NEG) Urine Barbiturates Neg (NEG) Urine Phencyclidine Screen Neg (NEG) Urine Amphetamine/Methamphetamine Neg (NEG) Urine Benzodiazepines Screen Neg (NEG) Urine Cocaine Screen Neg (NEG) Urine Cannabinoids Screen Neg (NEG) Urine Ethyl Alcohol Neg (NEG) Laboratory Tests Test 05/03/19 11:48 05/03/19 18:00 05/04/19 04:00 White Blood Count 11.5 x10^3/uL (4.0-11.0) 9.9 x10^3/uL (4.0-11.0) Red Blood Count 4.66 x10^6/uL (3.50-5.40) 3.85 x10^6/uL (3.50-5.40) Hemoglobin 13.7 g/dL (12.0-15.5) 11.3 g/dL (12.0-15.5) Hematocrit 41.2 % (36.0-47.0) 34.1 % (36.0-47.0) Mean Corpuscular Volume 88 fL (79-100) 89 fL (79-100) Mean Corpuscular Hemoglobin 29 pg (25-35) 29 pg (25-35) Mean Corpuscular Hemoglobin Concent 33 g/dL (31-37) 33 g/dL (31-37) Red Cell Distribution Width 13.9 % (11.5-14.5) 14.0 % (11.5-14.5) Platelet Count 312 x10^3/uL (140-400) 247 x10^3/uL (140-400) Neutrophils (%) (Auto) 62 % (31-73) 49 % (31-73) Lymphocytes (%) (Auto) 31 % (24-48) 44 % (24-48) Monocytes (%) (Auto) 5 % (0-9) 6 % (0-9) Eosinophils (%) (Auto) 1 % (0-3) 2 % (0-3) Basophils (%) (Auto) 1 % (0-3) 0 % (0-3) Neutrophils # (Auto) 7.1 x10^3/uL (1.8-7.7) 4.8 x10^3/uL (1.8-7.7) Lymphocytes # (Auto) 3.6 x10^3/uL (1.0-4.8) 4.3 x10^3/uL (1.0-4.8) Monocytes # (Auto) 0.6 x10^3/uL (0.0-1.1) 0.6 x10^3/uL (0.0-1.1) Eosinophils # (Auto) 0.2 x10^3/uL (0.0-0.7) 0.2 x10^3/uL (0.0-0.7) Basophils # (Auto) 0.1 x10^3/uL (0.0-0.2) 0.0 x10^3/uL (0.0-0.2) Prothrombin Time 12.4 SEC (11.7-14.0) Prothromb Time International Ratio 1.0 (0.8-1.1) Maternal Serum HCG Beta Subunit 4 mIU/mL (0-5) Sodium Level 141 mmol/L (136-145) 139 mmol/L (136-145) Potassium Level 3.8 mmol/L (3.5-5.1) 3.7 mmol/L (3.5-5.1) Chloride Level 105 mmol/L (98-107) 106 mmol/L (98-107) Carbon Dioxide Level 25 mmol/L (21-32) 23 mmol/L (21-32) Anion Gap 11 (6-14) 10 (6-14) Blood Urea Nitrogen 15 mg/dL (7-20) 12 mg/dL (7-20) Creatinine 0.9 mg/dL (0.6-1.0) 0.9 mg/dL (0.6-1.0) Estimated GFR (Cockcroft-Gault) 65.0 65.0 BUN/Creatinine Ratio 17 (6-20) 13 (6-20) Glucose Level 107 mg/dL (70-99) 139 mg/dL (70-99) Lactic Acid Level 0.8 mmol/L (0.4-2.0) Calcium Level 8.9 mg/dL (8.5-10.1) 8.3 mg/dL (8.5-10.1) Total Bilirubin 0.4 mg/dL (0.2-1.0) 0.3 mg/dL (0.2-1.0) Aspartate Amino Transf (AST/SGOT) 12 U/L (15-37) 9 U/L (15-37) Alanine Aminotransferase (ALT/SGPT) 15 U/L (14-59) 12 U/L (14-59) Alkaline Phosphatase 116 U/L (46-116) 88 U/L (46-116) Troponin I Quantitative < 0.017 ng/mL (0.000-0.055) SU-Iuv-Y-Type Natriuretic Peptide 164 pg/mL (0-124) Total Protein 7.9 g/dL (6.4-8.2) 6.2 g/dL (6.4-8.2) Albumin 4.0 g/dL (3.4-5.0) 3.0 g/dL (3.4-5.0) Albumin/Globulin Ratio 1.0 (1.0-1.7) 0.9 (1.0-1.7) Urine Collection Type Unknown Urine Color Yellow Urine Clarity Clear Urine pH 5.0 Urine Specific [place] >=1.030 Urine Protein Negative mg/dL (NEG-TRACE) Urine Glucose (UA) Negative mg/dL (NEG) Urine Ketones (Stick) Negative mg/dL (NEG) Urine Blood Trace (NEG) Urine Nitrite Negative (NEG) Urine Bilirubin Negative (NEG) Urine Urobilinogen Dipstick 0.2 mg/dL (0.2 mg/dL) Urine Leukocyte Esterase Negative (NEG) Urine RBC 1-2 /HPF (0-2) Urine WBC 5-10 /HPF (0-4) Urine Squamous Epithelial Cells Many /LPF Urine Bacteria Moderate /HPF (0-FEW) Urine Opiates Screen Neg (NEG) Urine Methadone Screen Neg (NEG) Urine Barbiturates Neg (NEG) Urine Phencyclidine Screen Neg (NEG) Urine Amphetamine/Methamphetamine Neg (NEG) Urine Benzodiazepines Screen Neg (NEG) Urine Cocaine Screen Neg (NEG) Urine Cannabinoids Screen Neg (NEG) Urine Ethyl Alcohol Neg (NEG) Medications Current Medications Ondansetron HCl (Zofran) 4 mg STK-MED ONCE .ROUTE ; Start 05/03/19 at 11:44; Stop 05/03/19 at 11:45; Status DC Fentanyl Citrate (Fentanyl 2ml Vial) 100 mcg STK-MED ONCE .ROUTE ; Start 05/03/19 at 11:45; Stop 05/03/19 at 11:45; Status DC Ceftriaxone Sodium (Rocephin) 1 gm 1X ONCE IVP Last administered on 05/03/19at 13:15; Start 05/03/19 at 11:45; Stop 05/03/19 at 12:46; Status DC Doxycycline Hyclate (Vibra-Tab) 100 mg 1X ONCE PO Last administered on 05/03/19 13:15; Start 05/03/19 at 11:45; Stop 05/03/19 at 12:47; Status DC Fentanyl Citrate (Fentanyl 2ml Vial) 50 mcg 1X ONCE IV Last administered on 05/03/19at 11:58; Start 05/03/19 at 11:45; Stop 05/03/19 at 12:47; Status DC Ondansetron HCl (Zofran) 4 mg 1X ONCE IV Last administered on 05/03/19at 11:57; Start 05/03/19 at 11:45; Stop 05/03/19 at 12:47; Status DC Iohexol (Omnipaque 350 Mg/ml) 100 ml 1X ONCE IV Last administered on 05/03/19at 12:56; Start 05/03/19 at 12:45; Stop 05/03/19 at 12:47; Status DC Ketamine HCl (Ketamine) 20 mg 1X ONCE IV Last administered on 05/03/19at 13:27; Start 05/03/19 at 12:45; Stop 05/03/19 at 12:46; Status DC Info (CONTRAST GIVEN -- Rx MONITORING) 1 each PRN DAILY PRN MC SEE COMMENTS; Start 05/03/19 at 13:00; Stop 05/05/19 at 12:59 Ondansetron HCl (Zofran) 4 mg 1X ONCE IVP Last administered on 05/03/19at 14:53; Start 05/03/19 at 14:45; Stop 05/03/19 at 14:47; Status DC Fentanyl Citrate (Fentanyl 2ml Vial) 50 mcg 1X ONCE IV Last administered on 05/03/19 14:54; Start 05/03/19 at 14:45; Stop 05/03/19 at 14:47; Status DC Ondansetron HCl (Zofran) 4 mg PRN Q8HRS PRN IV NAUSEA/VOMITING; Start 05/03/19 at 14:45; Stop 05/04/19 at 14:44 Fentanyl Citrate (Fentanyl 2ml Vial) 50 mcg PRN Q1HR PRN IV PAIN Last administered on 05/03/19 15:23; Start 05/03/19 at 14:45; Stop 05/03/19 at 20:26; Status DC Piperacillin Sod/ Tazobactam Sod 3.375 gm/Sodium Chloride 50 ml @ 100 mls/hr Q6HRS IV Last administered on 05/04/19at 05:55; Start 05/03/19 at 18:00 Doxycycline Hyclate (Vibra-Tab) 100 mg BID PO Last administered on 05/04/19 09:11; Start 05/03/19 at 21:00 Sodium Chloride (Normal Saline Flush) 3 ml QSHIFT PRN IV AFTER MEDS AND BLOOD DRAWS; Start 05/03/19 at 16:30 Sodium Chloride 1,000 ml @ 100 mls/hr Q10H IV Last administered on 05/04/19 05:55; Start 05/03/19 at 16:19 Ondansetron HCl (Zofran) 4 mg PRN Q4HRS PRN IV NAUSEA/VOMITING; Start 05/03/19 at 16:30 Acetaminophen (Tylenol) 650 mg PRN Q4HRS PRN PO TEMP OVER 100.4F OR MILD PAIN; Start 05/03/19 at 16:30 Al Hydroxide/Mg Hydroxide (Mylanta Plus Xs) 30 ml PRN DAILY PRN PO HEARTBURN / GAS; Start 05/03/19 at 16:30 Clonidine HCl (Catapres) 0.1 mg PRN Q6HRS PRN PO SBP>160 OR DBP>90; Start 05/03/19 at 16:30 Docusate Sodium (Colace) 100 mg PRN BID PRN PO HARD STOOLS; Start 05/03/19 at 16:30 Albuterol/ Ipratropium (Duoneb) 3 ml Q4H NEB Last administered on 05/04/19at 08:30; Start 05/03/19 at 16:30 Guaifenesin (Robitussin) 200 mg PRN Q4HRS PRN PO COUGH Last administered on 05/04/19at 09:10; Start 05/03/19 at 16:30 Lorazepam (Ativan) 0.5 mg PRN Q4HRS PRN PO ANXIETY / AGITATION; Start 05/03/19 at 16:30 Enoxaparin Sodium (Lovenox 40mg Syringe) 40 mg DAILY SQ ; Start 05/04/19 at 09:00 Hydromorphone HCl (Dilaudid) 1 mg PRN Q3HRS PRN IV SEVERE PAIN 7-10; Start 05/03/19 at 17:00 Cyclobenzaprine HCl (Flexeril) 10 mg PRN Q6HRS PRN PO MUSCLE SPASMS Last administered on 05/04/19at 09:10; Start 05/03/19 at 17:45 Ibuprofen (Motrin) 800 mg PRN Q6HRS PRN PO INFLAMMATION Last administered on 05/04/19at 09:11; Start 05/03/19 at 17:45 Tramadol HCl (Ultram) 50 mg PRN Q6HRS PRN PO PAIN Last administered on 05/04/19at 02:13; Start 05/03/19 at 17:45 Vitals/I & O Vital Sign - Last 24 Hours 05/03/19 05/03/19 05/03/19 05/03/19 11:31 11:58 12:28 13:30 Temp 97.9 97.9 Pulse 98 76 Resp 18 16 18 16 B/P (MAP) 151/83 (105) 170/80 (110) Pulse Ox 84 92 O2 Delivery Room Air Room Air 05/03/19 05/03/19 05/03/19 05/03/19 14:30 14:54 15:00 15:23 Pulse 76 64 Resp 16 16 16 16 B/P (MAP) 119/62 (81) 124/69 (87) Pulse Ox 93 93 94 O2 Delivery Room Air Room Air Room Air 05/03/19 05/03/19 05/03/19 05/03/19 15:24 15:35 15:53 18:38 Temp 98.1 98.1 Pulse 83 Resp 16 20 20 22 B/P (MAP) 117/75 (89) Pulse Ox 93 O2 Delivery Nasal Cannula Room Air Nasal Cannula 05/03/19 05/03/19 05/03/19 05/03/19 19:04 20:39 20:44 23:10 Temp 98.4 98.6 98.4 98.6 Pulse 70 76 Resp 20 18 B/P (MAP) 113/68 (83) 123/53 (76) Pulse Ox 94 94 91 O2 Delivery Nasal Cannula Nasal Cannula Room Air Nasal Cannula O2 Flow Rate 2.0 2.0 2.0 05/04/19 05/04/19 05/04/19 05/04/19 00:26 02:13 03:13 03:34 Temp 98.5 98.5 Pulse 72 Resp 20 20 18 B/P (MAP) 97/53 (68) Pulse Ox 92 92 O2 Delivery Nasal Cannula Nasal Cannula Nasal Cannula Nasal Cannula O2 Flow Rate 1.0 2.0 05/04/19 05/04/19 07:00 08:31 Temp 98.9 98.9 Pulse 71 Resp 16 B/P (MAP) 96/48 (64) Pulse Ox 93 89 O2 Delivery Nasal Cannula Room Air O2 Flow Rate 2.0 Intake and Output 05/03/19 05/03/19 05/04/19 15:00 23:00 07:00 Intake Total 450 ml 1350 ml Balance 450 ml 1350 ml MELVI HAQ MD May 04, 2019 09:41
[2019-05-04] MEDS ORDERED: IV NORMAL SALINE 1000ML BAG 1,000 ML IV ONE ×2 (09:45)
[2019-05-04] MEDS ORDERED: NICOTINE 21MG PATCH. TD PRN (09:45)
[2019-05-04 11:00] VITALS: BP 115/65
--- NOTE | 2019-05-04 11:48 | CONS ---
DATE OF CONSULTATION: 05/04/2019 I was asked to see this 54-year-old lady for acute respiratory failure, pneumonia. HISTORY OF PRESENT ILLNESS: She does have history of 20-30 pack a year smoking, continues to smoke about 5-10 cigarettes per day. She has not been diagnosed with COPD or asthma. She is from [place]. She had a cold last week. CPAP was given to her. She fell on Sunday (today is Sunday). She did have some pain in the right lower chest area, was not able to do deep breaths and also had more and more cough. She did have some sputum production. She presented to the Emergency Room, his O2 saturation was 85%. She was admitted. She is able to breathe easier today. She does have cough. Her pain has improved. PAST MEDICAL HISTORY: Status post appendectomy. ALLERGIES: No known drug allergies. MEDICATIONS: Currently she is on Zosyn, doxycycline, Lovenox, DuoNeb. SOCIAL HISTORY: History of 20-30 pack-a-year smoking, continues to smoke. 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 FAMILY HISTORY: No history of lung disease. REVIEW OF SYSTEMS: As mentioned as above, other systems otherwise negative. PHYSICAL EXAMINATION: VITAL SIGNS: Her O2 saturation on 2 liters of oxygen is 93%, respiratory rate 16, heart rate 71, blood pressure 96/48, temperature 98.9. HEENT: Normocephalic, atraumatic. Pupils equal, round, reactive to light. Throat is clear. Nose is clear. NECK: There is no JVD, lymphadenopathy or thyromegaly. CARDIOVASCULAR: Regular rate and rhythm. PMI is nondisplaced. CHEST: Inspection is normal. LUNGS: There are bibasilar crackles, right more than left. Percussion is within normal limit. ABDOMEN: Soft. Bowel sounds are good. There is no mass. EXTREMITIES: There is no edema. LYMPHATICS: There is no lymphadenopathy. NEUROLOGIC: Alert and oriented. LABORATORY DATA: I reviewed the following lab data. Her urine drug screen was negative. Sodium 139, potassium 3.7, chloride 106, CO2 of 23, BUN 12, creatinine 0.9, glucose 139. Troponin less than 0.01. Lactic acid 0.8. WBC on admission 11.5, hemoglobin 13.7, platelets 312,000. INR 1. CT angiogram of the chest did not show pulmonary embolism, showed bibasilar infiltrate/atelectasis. Chest x-ray does show right-sided rib fractures, 6th and 7th ribs. IMPRESSION: 1. Acute respiratory failure secondary to pneumonia, atelectasis. 2. Abnormal CT of the chest. 3. Status post fall with rib fractures. 4. Pneumonia. 5. Smoker. PLAN AND RECOMMENDATIONS: 1. I had a long discussion with her regarding the smoking cessation. I have advised her to stop smoking forever. 2. Titrate FiO2 to keep the O2 saturation more than 92%. 3. Continue bronchodilator. 4. Continue antibiotic. 5. Start IS. 6. Lovenox for DVT prophylaxis. 7. The findings and recommendations were discussed with the patient. She understood and agreed to proceed with the plan. I have answered all of her questions. Thank you very much for allowing me to participate in care of this very nice lady. MAE SAUNDERS M.D. DR: TOSHA/boaz JOB#: [id number] / [id number] PAMELA
[2019-05-04 15:00] VITALS: BP 107/56
[2019-05-04 19:04] VITALS: BP 145/71
[2019-05-04] MEDS: LACTOBACILLUS RHAMNOSUS GG 1 CAPSULE. PO SCH (20:55)
[2019-05-04 23:46] VITALS: BP 103/44
[2019-05-05] MEDS: IPRATRPIUM/ALBUTEROL 0.5/2.5MG 3 ML NEBU. NEB SCH ×4 (00:04→12:30)
[2019-05-05] MEDS: PIPERACILLIN/TAZOBACTAM 3.375 GM in IV NORMAL SALINE 50ML 50 ML IV SCH ×3 (01:12→11:01)
[2019-05-05 03:30] VITALS: BP 93/45
[2019-05-05 07:00] VITALS: BP 107/62
[2019-05-05] MEDS: DOXYCYCLINE HYCLATE 100 MG TABLET PO SCH (07:32)
[2019-05-05] MEDS: LACTOBACILLUS RHAMNOSUS GG 1 CAPSULE. PO SCH (07:32)
[2019-05-05] MEDS: IV NORMAL SALINE 1000ML BAG 1,000 ML IV SCH (07:33)
[2019-05-05] MEDS: CYCLOBENZAPRINE 10 MG TABLET. PO PRN (07:35)
[2019-05-05] MEDS: IBUPROFEN 400 MG TABLET. PO PRN (07:35)
[2019-05-05] MEDS: ENOXAPARIN 40 MG/0.4 ML SYRINGE. SQ SCH (07:35)
--- NOTE | 2019-05-05 07:53 | EKG ---
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
--- NOTE | 2019-05-05 09:22 | PDOC ---
PULMONARY PROGRESS NOTES Vitals Vital Signs Date Time Temp Pulse Resp B/P (MAP) Pulse Ox O2 Delivery O2 Flow Rate FiO2 05/05/19 09:11 94 Nasal Cannula 1.0 05/05/19 07:00 98.3 88 18 107/62 (77) 98.3 Lungs: Crackles Labs Laboratory Tests Test 05/03/19 11:48 05/03/19 18:00 05/04/19 04:00 White Blood Count 11.5 x10^3/uL (4.0-11.0) 9.9 x10^3/uL (4.0-11.0) Red Blood Count 4.66 x10^6/uL (3.50-5.40) 3.85 x10^6/uL (3.50-5.40) Hemoglobin 13.7 g/dL (12.0-15.5) 11.3 g/dL (12.0-15.5) Hematocrit 41.2 % (36.0-47.0) 34.1 % (36.0-47.0) Mean Corpuscular Volume 88 fL (79-100) 89 fL (79-100) Mean Corpuscular Hemoglobin 29 pg (25-35) 29 pg (25-35) Mean Corpuscular Hemoglobin Concent 33 g/dL (31-37) 33 g/dL (31-37) Red Cell Distribution Width 13.9 % (11.5-14.5) 14.0 % (11.5-14.5) Platelet Count 312 x10^3/uL (140-400) 247 x10^3/uL (140-400) Neutrophils (%) (Auto) 62 % (31-73) 49 % (31-73) Lymphocytes (%) (Auto) 31 % (24-48) 44 % (24-48) Monocytes (%) (Auto) 5 % (0-9) 6 % (0-9) Eosinophils (%) (Auto) 1 % (0-3) 2 % (0-3) Basophils (%) (Auto) 1 % (0-3) 0 % (0-3) Neutrophils # (Auto) 7.1 x10^3/uL (1.8-7.7) 4.8 x10^3/uL (1.8-7.7) Lymphocytes # (Auto) 3.6 x10^3/uL (1.0-4.8) 4.3 x10^3/uL (1.0-4.8) Monocytes # (Auto) 0.6 x10^3/uL (0.0-1.1) 0.6 x10^3/uL (0.0-1.1) Eosinophils # (Auto) 0.2 x10^3/uL (0.0-0.7) 0.2 x10^3/uL (0.0-0.7) Basophils # (Auto) 0.1 x10^3/uL (0.0-0.2) 0.0 x10^3/uL (0.0-0.2) Prothrombin Time 12.4 SEC (11.7-14.0) Prothromb Time International Ratio 1.0 (0.8-1.1) Maternal Serum HCG Beta Subunit 4 mIU/mL (0-5) Sodium Level 141 mmol/L (136-145) 139 mmol/L (136-145) Potassium Level 3.8 mmol/L (3.5-5.1) 3.7 mmol/L (3.5-5.1) Chloride Level 105 mmol/L (98-107) 106 mmol/L (98-107) Carbon Dioxide Level 25 mmol/L (21-32) 23 mmol/L (21-32) Anion Gap 11 (6-14) 10 (6-14) Blood Urea Nitrogen 15 mg/dL (7-20) 12 mg/dL (7-20) Creatinine 0.9 mg/dL (0.6-1.0) 0.9 mg/dL (0.6-1.0) Estimated GFR (Cockcroft-Gault) 65.0 65.0 BUN/Creatinine Ratio 17 (6-20) 13 (6-20) Glucose Level 107 mg/dL (70-99) 139 mg/dL (70-99) Lactic Acid Level 0.8 mmol/L (0.4-2.0) Calcium Level 8.9 mg/dL (8.5-10.1) 8.3 mg/dL (8.5-10.1) Total Bilirubin 0.4 mg/dL (0.2-1.0) 0.3 mg/dL (0.2-1.0) Aspartate Amino Transf (AST/SGOT) 12 U/L (15-37) 9 U/L (15-37) Alanine Aminotransferase (ALT/SGPT) 15 U/L (14-59) 12 U/L (14-59) Alkaline Phosphatase 116 U/L (46-116) 88 U/L (46-116) Troponin I Quantitative < 0.017 ng/mL (0.000-0.055) XH-Vys-T-Type Natriuretic Peptide 164 pg/mL (0-124) Total Protein 7.9 g/dL (6.4-8.2) 6.2 g/dL (6.4-8.2) Albumin 4.0 g/dL (3.4-5.0) 3.0 g/dL (3.4-5.0) Albumin/Globulin Ratio 1.0 (1.0-1.7) 0.9 (1.0-1.7) Urine Collection Type Unknown Urine Color Yellow Urine Clarity Clear Urine pH 5.0 Urine Specific [place] >=1.030 Urine Protein Negative mg/dL (NEG-TRACE) Urine Glucose (UA) Negative mg/dL (NEG) Urine Ketones (Stick) Negative mg/dL (NEG) Urine Blood Trace (NEG) Urine Nitrite Negative (NEG) Urine Bilirubin Negative (NEG) Urine Urobilinogen Dipstick 0.2 mg/dL (0.2 mg/dL) Urine Leukocyte Esterase Negative (NEG) Urine RBC 1-2 /HPF (0-2) Urine WBC 5-10 /HPF (0-4) Urine Squamous Epithelial Cells Many /LPF Urine Bacteria Moderate /HPF (0-FEW) Urine Opiates Screen Neg (NEG) Urine Methadone Screen Neg (NEG) Urine Barbiturates Neg (NEG) Urine Phencyclidine Screen Neg (NEG) Urine Amphetamine/Methamphetamine Neg (NEG) Urine Benzodiazepines Screen Neg (NEG) Urine Cocaine Screen Neg (NEG) Urine Cannabinoids Screen Neg (NEG) Urine Ethyl Alcohol Neg (NEG) CARLITO GUERRERO MD May 05, 2019 09:22
--- NOTE | 2019-05-05 10:51 | PDOC ---
PROGRESS NOTES History of Present Illness History of Present Illness VTE Prophylaxis Ordered VTE Prophylaxis Devices: Yes VTE Pharmacological Prophylaxi: Yes discharge dx Assessment/Plan IMPRESSION Patchy infiltrates are seen in the posterior aspect both lower lobes. C/W PNEUMONIA Acute hypoxic resp failure Diffuse bilateral emphysematous changes are seen. There is no pleural effusion TOBACCO ABUSE FALL RIGHT POST CHEST WALL CONTUSION POA on cxr mildly displaced fractures of the posterior lateral right sixth and seventh ribs. //round mass in the right lung base. There are patchy opacities in the lung bases MILD HYPOTENSION , dehydration PLAN ADMIT IV ANTIBIOTICS, zosyn, doxy DUONEBS QID dvt prophylaxis pulm consult iv pain control CTA CHEST IV ZOFRAN 4 MG Q 4 HRS PRN smoking cessation education discussed legionella urinary ag sputum culture IV FLUID BOLUS 1000CC X 1 05-04 wanted to leave earlier, was hypoxic on room air , now agrees to stay, consider d/c in AM ON LEVAQUIN 750 po X 10 DAYS 05-05 6 MIN WALK ok no desat < 93% 31 MIN PT EXAM, CHART REVIEW D/C PLANNING TIME, > 50% OF TIME SPENT WITH EXAM, CHART REVIEW, PT CARE COORDINATION Diffuse bilateral emphysematous changes are seen. SMOKING CESSATION EDUCATION PROVIDED Vitals Vitals Vital Signs Date Time Temp Pulse Resp B/P (MAP) Pulse Ox O2 Delivery O2 Flow Rate FiO2 05/05/19 09:48 92 Room Air 05/05/19 09:11 1.0 05/05/19 07:00 98.3 88 18 107/62 (77) 98.3 Physical Exam Physical Exam hypoxia noted on room air spo2 88% on room air at rest 05-04 General: Alert, Oriented X3, Cooperative, No acute distress Heart: Regular rate, Normal S1, Normal S2 Lungs: Clear, Crackles Abdomen: Normal bowel sounds, Soft, No hepatosplenomegaly Extremities: No clubbing, No cyanosis, No edema, No tenderness/swelling Skin: No significant lesion Labs LABS Neb Treatment Type * Hand Held Neb Neb Treatment Mode * Mouthpiece Pulse * 82 beats/min Respirations * 16 breaths/min Respiratory Pattern * Regular Work of Breathing * No Distress Breath Sounds * Clear * Decreased Lung Location * Bilateral * Left Upper Lobe * Left Lower Lobe Cough Description * None Oxygen Delivery Method * Room Air Bedside Pulse Oximetry * 92 % Assessment and Plan Assessmemt and Plan Problems Medical Problems: (1) Pneumonia Status: Acute Comment Review of Relevant I have reviewed the following items lacy (where applicable) has been applied. Labs Laboratory Tests Test 05/03/19 11:48 05/03/19 18:00 05/04/19 04:00 White Blood Count 11.5 x10^3/uL (4.0-11.0) 9.9 x10^3/uL (4.0-11.0) Red Blood Count 4.66 x10^6/uL (3.50-5.40) 3.85 x10^6/uL (3.50-5.40) Hemoglobin 13.7 g/dL (12.0-15.5) 11.3 g/dL (12.0-15.5) Hematocrit 41.2 % (36.0-47.0) 34.1 % (36.0-47.0) Mean Corpuscular Volume 88 fL (79-100) 89 fL (79-100) Mean Corpuscular Hemoglobin 29 pg (25-35) 29 pg (25-35) Mean Corpuscular Hemoglobin Concent 33 g/dL (31-37) 33 g/dL (31-37) Red Cell Distribution Width 13.9 % (11.5-14.5) 14.0 % (11.5-14.5) Platelet Count 312 x10^3/uL (140-400) 247 x10^3/uL (140-400) Neutrophils (%) (Auto) 62 % (31-73) 49 % (31-73) Lymphocytes (%) (Auto) 31 % (24-48) 44 % (24-48) Monocytes (%) (Auto) 5 % (0-9) 6 % (0-9) Eosinophils (%) (Auto) 1 % (0-3) 2 % (0-3) Basophils (%) (Auto) 1 % (0-3) 0 % (0-3) Neutrophils # (Auto) 7.1 x10^3/uL (1.8-7.7) 4.8 x10^3/uL (1.8-7.7) Lymphocytes # (Auto) 3.6 x10^3/uL (1.0-4.8) 4.3 x10^3/uL (1.0-4.8) Monocytes # (Auto) 0.6 x10^3/uL (0.0-1.1) 0.6 x10^3/uL (0.0-1.1) Eosinophils # (Auto) 0.2 x10^3/uL (0.0-0.7) 0.2 x10^3/uL (0.0-0.7) Basophils # (Auto) 0.1 x10^3/uL (0.0-0.2) 0.0 x10^3/uL (0.0-0.2) Prothrombin Time 12.4 SEC (11.7-14.0) Prothromb Time International Ratio 1.0 (0.8-1.1) Maternal Serum HCG Beta Subunit 4 mIU/mL (0-5) Sodium Level 141 mmol/L (136-145) 139 mmol/L (136-145) Potassium Level 3.8 mmol/L (3.5-5.1) 3.7 mmol/L (3.5-5.1) Chloride Level 105 mmol/L (98-107) 106 mmol/L (98-107) Carbon Dioxide Level 25 mmol/L (21-32) 23 mmol/L (21-32) Anion Gap 11 (6-14) 10 (6-14) Blood Urea Nitrogen 15 mg/dL (7-20) 12 mg/dL (7-20) Creatinine 0.9 mg/dL (0.6-1.0) 0.9 mg/dL (0.6-1.0) Estimated GFR (Cockcroft-Gault) 65.0 65.0 BUN/Creatinine Ratio 17 (6-20) 13 (6-20) Glucose Level 107 mg/dL (70-99) 139 mg/dL (70-99) Lactic Acid Level 0.8 mmol/L (0.4-2.0) Calcium Level 8.9 mg/dL (8.5-10.1) 8.3 mg/dL (8.5-10.1) Total Bilirubin 0.4 mg/dL (0.2-1.0) 0.3 mg/dL (0.2-1.0) Aspartate Amino Transf (AST/SGOT) 12 U/L (15-37) 9 U/L (15-37) Alanine Aminotransferase (ALT/SGPT) 15 U/L (14-59) 12 U/L (14-59) Alkaline Phosphatase 116 U/L (46-116) 88 U/L (46-116) Troponin I Quantitative < 0.017 ng/mL (0.000-0.055) LE-Jlu-A-Type Natriuretic Peptide 164 pg/mL (0-124) Total Protein 7.9 g/dL (6.4-8.2) 6.2 g/dL (6.4-8.2) Albumin 4.0 g/dL (3.4-5.0) 3.0 g/dL (3.4-5.0) Albumin/Globulin Ratio 1.0 (1.0-1.7) 0.9 (1.0-1.7) Urine Collection Type Unknown Urine Color Yellow Urine Clarity Clear Urine pH 5.0 Urine Specific [place] >=1.030 Urine Protein Negative mg/dL (NEG-TRACE) Urine Glucose (UA) Negative mg/dL (NEG) Urine Ketones (Stick) Negative mg/dL (NEG) Urine Blood Trace (NEG) Urine Nitrite Negative (NEG) Urine Bilirubin Negative (NEG) Urine Urobilinogen Dipstick 0.2 mg/dL (0.2 mg/dL) Urine Leukocyte Esterase Negative (NEG) Urine RBC 1-2 /HPF (0-2) Urine WBC 5-10 /HPF (0-4) Urine Squamous Epithelial Cells Many /LPF Urine Bacteria Moderate /HPF (0-FEW) Urine Opiates Screen Neg (NEG) Urine Methadone Screen Neg (NEG) Urine Barbiturates Neg (NEG) Urine Phencyclidine Screen Neg (NEG) Urine Amphetamine/Methamphetamine Neg (NEG) Urine Benzodiazepines Screen Neg (NEG) Urine Cocaine Screen Neg (NEG) Urine Cannabinoids Screen Neg (NEG) Urine Ethyl Alcohol Neg (NEG) Microbiology 05/03/19 Blood Culture - Preliminary, Resulted NO GROWTH AFTER 1 DAY Medications Current Medications Ondansetron HCl (Zofran) 4 mg STK-MED ONCE .ROUTE ; Start 05/03/19 at 11:44; Stop 05/03/19 at 11:45; Status DC Fentanyl Citrate (Fentanyl 2ml Vial) 100 mcg STK-MED ONCE .ROUTE ; Start 05/03/19 at 11:45; Stop 05/03/19 at 11:45; Status DC Ceftriaxone Sodium (Rocephin) 1 gm 1X ONCE IVP Last administered on 05/03/19 13:15; Start 05/03/19 at 11:45; Stop 05/03/19 at 12:46; Status DC Doxycycline Hyclate (Vibra-Tab) 100 mg 1X ONCE PO Last administered on 05/03/19 13:15; Start 05/03/19 at 11:45; Stop 05/03/19 at 12:47; Status DC Fentanyl Citrate (Fentanyl 2ml Vial) 50 mcg 1X ONCE IV Last administered on 05/03/19 11:58; Start 05/03/19 at 11:45; Stop 05/03/19 at 12:47; Status DC Ondansetron HCl (Zofran) 4 mg 1X ONCE IV Last administered on 05/03/19 11:57; Start 05/03/19 at 11:45; Stop 05/03/19 at 12:47; Status DC Iohexol (Omnipaque 350 Mg/ml) 100 ml 1X ONCE IV Last administered on 05/03/19 12:56; Start 05/03/19 at 12:45; Stop 05/03/19 at 12:47; Status DC Ketamine HCl (Ketamine) 20 mg 1X ONCE IV Last administered on 05/03/19 13:27; Start 05/03/19 at 12:45; Stop 05/03/19 at 12:46; Status DC Info (CONTRAST GIVEN -- Rx MONITORING) 1 each PRN DAILY PRN MC SEE COMMENTS; Start 05/03/19 at 13:00; Stop 05/05/19 at 12:59 Ondansetron HCl (Zofran) 4 mg 1X ONCE IVP Last administered on 05/03/19at 14:53; Start 05/03/19 at 14:45; Stop 05/03/19 at 14:47; Status DC Fentanyl Citrate (Fentanyl 2ml Vial) 50 mcg 1X ONCE IV Last administered on 05/03/19at 14:54; Start 05/03/19 at 14:45; Stop 05/03/19 at 14:47; Status DC Ondansetron HCl (Zofran) 4 mg PRN Q8HRS PRN IV NAUSEA/VOMITING; Start 05/03/19 at 14:45; Stop 05/04/19 at 11:56; Status DC Fentanyl Citrate (Fentanyl 2ml Vial) 50 mcg PRN Q1HR PRN IV PAIN Last administered on 05/03/19 15:23; Start 05/03/19 at 14:45; Stop 05/03/19 at 20:26; Status DC Piperacillin Sod/ Tazobactam Sod 3.375 gm/Sodium Chloride 50 ml @ 100 mls/hr Q6HRS IV Last administered on 05/05/19at 05:36; Start 05/03/19 at 18:00 Doxycycline Hyclate (Vibra-Tab) 100 mg BID PO Last administered on 05/05/19 07:32; Start 05/03/19 at 21:00 Sodium Chloride (Normal Saline Flush) 3 ml QSHIFT PRN IV AFTER MEDS AND BLOOD DRAWS; Start 05/03/19 at 16:30 Sodium Chloride 1,000 ml @ 100 mls/hr Q10H IV Last administered on 05/05/19at 07:33; Start 05/03/19 at 16:19 Ondansetron HCl (Zofran) 4 mg PRN Q4HRS PRN IV NAUSEA/VOMITING; Start 05/03/19 at 16:30 Acetaminophen (Tylenol) 650 mg PRN Q4HRS PRN PO TEMP OVER 100.4F OR MILD PAIN; Start 05/03/19 at 16:30 Al Hydroxide/Mg Hydroxide (Mylanta Plus Xs) 30 ml PRN DAILY PRN PO HEARTBURN / GAS; Start 05/03/19 at 16:30 Clonidine HCl (Catapres) 0.1 mg PRN Q6HRS PRN PO SBP>160 OR DBP>90; Start 05/03/19 at 16:30 Docusate Sodium (Colace) 100 mg PRN BID PRN PO HARD STOOLS Last administered on 05/04/19at 20:55; Start 05/03/19 at 16:30 Albuterol/ Ipratropium (Duoneb) 3 ml Q4H NEB Last administered on 05/05/19at 08:30; Start 05/03/19 at 16:30 Guaifenesin (Robitussin) 200 mg PRN Q4HRS PRN PO COUGH Last administered on at 15:12; Start 05/03/19 at 16:30 Lorazepam (Ativan) 0.5 mg PRN Q4HRS PRN PO ANXIETY / AGITATION; Start 05/03/19 at 16:30 Enoxaparin Sodium (Lovenox 40mg Syringe) 40 mg DAILY SQ ; Start 05/04/19 at 09:00 Hydromorphone HCl (Dilaudid) 1 mg PRN Q3HRS PRN IV SEVERE PAIN 7-10; Start 05/03/19 at 17:00 Cyclobenzaprine HCl (Flexeril) 10 mg PRN Q6HRS PRN PO MUSCLE SPASMS Last a dministered on 05/05/19at 07:35; Start 05/03/19 at 17:45 Ibuprofen (Motrin) 800 mg PRN Q6HRS PRN PO INFLAMMATION Last administered on 05/05/19at 07:35; Start 05/03/19 at 17:45 Tramadol HCl (Ultram) 50 mg PRN Q6HRS PRN PO PAIN Last administered on 05/04at 20:55; Start 05/03/19 at 17:45 Sodium Chloride 1,000 ml @ 125 mls/hr 1X ONCE IV Last administered on 05/04/19at 12:03; Start 05/04/19 at 09:45; Stop 05/04/19 at 17:44; Status DC Sodium Chloride 1,000 ml @ 1,000 mls/hr 1X ONCE IV Last administered on 05/04/19at 12:03; Start 05/04/19 at 09:45; Stop 05/04/19 at 10:44; Status DC Nicotine (Nicoderm Cq 21mg) 1 patch PRN DAILY PRN TD SMOKING CESSATION; Start 05/04/19 at 09:45 Lactobacillus Rhamnosus (Culturelle) 1 cap BID PO Last administered on 05/05/19at 07:32; Start 05/04/19 at 21:00 Vitals/I & O Vital Sign - Last 24 Hours 05/04/19 05/04/19 05/04/19 05/04/19 09:44 10:44 11:00 13:44 Temp 98.7 98.7 Pulse 71 Resp 18 14 B/P (MAP) 115/65 (82) Pulse Ox 89 95 95 94 O2 Delivery Nasal Cannula Room Air O2 Flow Rate 2.0 1.0 1.0 05/04/19 05/04/19 05/04/1905/04/19 15:00 15:13 16:09 17:01 Temp 98.4 98.4 Pulse 80 Resp 14 18 B/P (MAP) 107/56 (73) Pulse Ox 93 94 94 97 O2 Delivery Nasal Cannula Room Air O2 Flow Rate 1.0 1.0 1.0 05/04/19 05/04/19 05/04/19 05/04/19 19:04 19:45 21:07 21:57 Temp 97.9 97.9 Pulse 97 Resp 20 B/P (MAP) 145/71 (95) Pulse Ox 91 92 94 O2 Delivery Room Air Room Air Nasal Cannula Nasal Cannula O2 Flow Rate 1.0 2.0 05/04/19 05/05/19 05/05/19 05/05/19 23:46 00:04 03:30 04:17 Temp 98.5 98.0 98.5 98.0 Pulse 87 79 Resp 20 20 B/P (MAP) 103/44 (63) 93/45 (61) Pulse Ox 94 94 O2 Delivery Nasal Cannula Nasal Cannula Nasal Cannula Nasal Cannula O2 Flow Rate 2.0 2.0 2.0 2.0 05/05/19 05/05/19 05/05/19 05/05/19 07:00 08:00 09:11 09:48 Temp 98.3 98.3 Pulse 88 Resp 18 B/P (MAP) 107/62 (77) Pulse Ox 95 94 92 O2 Delivery Nasal Cannula Room Air Nasal Cannula Room Air O2 Flow Rate 2.0 2.0 1.0 Intake and Output 05/04/19 05/05/19 05/05/19 17:00 01:00 09:00 Intake Total 1110 ml 500 ml 1951 ml Balance 1110 ml 500 ml 1951 ml MELVI HAQ MD May 05, 2019 10:51
[2019-05-05 11:00] VITALS: BP 136/69
--- NOTE | 2019-05-05 13:49 | PDOC3 ---
Discharge Summary Date of Admission: May 03, 2019 Date of Discharge: May 05, 2019 Follow-Up: 3-5 days Admitting Diagnosis comment: discharge dx Assessment/Plan IMPRESSION Patchy infiltrates are seen in the posterior aspect both lower lobes. C/W PNEUMONIA Acute hypoxic resp failure Diffuse bilateral emphysematous changes are seen. There is no pleural effusion TOBACCO ABUSE FALL RIGHT POST CHEST WALL CONTUSION POA on cxr mildly displaced fractures of the posterior lateral right sixth and seventh ribs. //round mass in the right lung base. There are patchy opacities in the lung bases MILD HYPOTENSION , dehydration PLAN ADMIT IV ANTIBIOTICS, zosyn, doxy DUONEBS QID dvt prophylaxis pulm consult iv pain control CTA CHEST IV ZOFRAN 4 MG Q 4 HRS PRN smoking cessation education discussed legionella urinary ag sputum culture IV FLUID BOLUS 1000CC X 1 05-04 wanted to leave earlier, was hypoxic on room air , now agrees to stay, consider d/c in AM ON LEVAQUIN 750 po X 10 DAYS 05-05 6 MIN WALK ok no desat < 93% 31 MIN PT EXAM, CHART REVIEW D/C PLANNING TIME, > 50% OF TIME SPENT WITH EXAM, CHART REVIEW, PT CARE COORDINATION Diffuse bilateral emphysematous changes are seen. SMOKING CESSATION EDUCATION PROVIDED Vitals Vitals Vital Signs Date Time Temp Pulse Resp B/P (MAP) Pulse Ox O2 Delivery O2 Flow Rate FiO2 05/05/19 09:48 92 Room Air 05/05/19 09:11 1.0 05/05/19 07:00 98.3 88 18 107/62 (77) 98.3 Physical Exam Physical Exam hypoxia noted on room air spo2 88% on room air at rest 05-04 General: Alert, Oriented X3, Cooperative, No acute distress Heart: Regular rate, Normal S1, Normal S2 Lungs: Clear, Crackles Abdomen: Normal bowel sounds, Soft, No hepatosplenomegaly Extremities: No clubbing, No cyanosis, No edema, No tenderness/swelling Skin: No significant lesion Labs LABS Neb Treatment Type * Hand Held Neb Neb Treatment Mode * Mouthpiece Pulse * 82 beats/min Respirations * 16 breaths/min Respiratory Pattern * Regular Work of Breathing * No Distress Breath Sounds * Clear * Decreased Lung Location * Bilateral * Left Upper Lobe * Left Lower Lobe Cough Description * None Oxygen Delivery Method * Room Air Bedside Pulse Oximetry * 92 % FINAL DIAGNOSIS Problems Medical Problems: (1) Pneumonia Status: Acute Brief Hospital Course Ms. Maldonado is a 54 old [sex] who presented with [acute pneumonia ] CONDITION AT DISCHARGE: Improved Discharge Medications Current Medications Ondansetron HCl (Zofran) 4 mg STK-MED ONCE .ROUTE ; Start 05/03/19 at 11:44; Stop 05/03/19 at 11:45; Status DC Fentanyl Citrate (Fentanyl 2ml Vial) 100 mcg STK-MED ONCE .ROUTE ; Start 05/03/19 at 11:45; Stop 05/03/19 at 11:45; Status DC Ceftriaxone Sodium (Rocephin) 1 gm 1X ONCE IVP Last administered on 05/03/19at 13:15; Start 05/03/19 at 11:45; Stop 05/03/19 at 12:46; Status DC Doxycycline Hyclate (Vibra-Tab) 100 mg 1X ONCE PO Last administered on 05/03/19at 13:15; Start 05/03/19 at 11:45; Stop 05/03/19 at 12:47; Status DC Fentanyl Citrate (Fentanyl 2ml Vial) 50 mcg 1X ONCE IV Last administered on 05/03/19at 11:58; Start 05/03/19 at 11:45; Stop 05/03/19 at 12:47; Status DC Ondansetron HCl (Zofran) 4 mg 1X ONCE IV Last administered on 05/03/19at 11:57; Start 05/03/19 at 11:45; Stop 05/03/19 at 12:47; Status DC Iohexol (Omnipaque 350 Mg/ml) 100 ml 1X ONCE IV Last administered on 05/03/19at 12:56; Start 05/03/19 at 12:45; Stop 05/03/19 at 12:47; Status DC Ketamine HCl (Ketamine) 20 mg 1X ONCE IV Last administered on 05/03/19at 13:27; Start 05/03/19 at 12:45; Stop 05/03/19 at 12:46; Status DC Info (CONTRAST GIVEN -- Rx MONITORING) 1 each PRN DAILY PRN MC SEE COMMENTS; Start 05/03/19 at 13:00; Stop 05/05/19 at 12:59; Status DC Ondansetron HCl (Zofran) 4 mg 1X ONCE IVP Last administered on 05/03/19 14:53; Start 05/03/19 at 14:45; Stop 05/03/19 at 14:47; Status DC Fentanyl Citrate (Fentanyl 2ml Vial) 50 mcg 1X ONCE IV Last administered on 05/03/19at 14:54; Start 05/03/19 at 14:45; Stop 05/03/19 at 14:47; Status DC Ondansetron HCl (Zofran) 4 mg PRN Q8HRS PRN IV NAUSEA/VOMITING; Start 05/03/19 at 14:45; Stop 05/04/19 at 11:56; Status DC Fentanyl Citrate (Fentanyl 2ml Vial) 50 mcg PRN Q1HR PRN IV PAIN Last administered on 05/03/19 15:23; Start 05/03/19 at 14:45; Stop 05/03/19 at 20:26; Status DC Piperacillin Sod/ Tazobactam Sod 3.375 gm/Sodium Chloride 50 ml @ 100 mls/hr Q6HRS IV Last administered on 05/05/19at 11:01; Start 05/03/19 at 18:00 Doxycycline Hyclate (Vibra-Tab) 100 mg BID PO Last administered on 05/05/19 07:32; Start 05/03/19 at 21:00 Sodium Chloride (Normal Saline Flush) 3 ml QSHIFT PRN IV AFTER MEDS AND BLOOD DRAWS; Start 05/03/19 at 16:30 Sodium Chloride 1,000 ml @ 100 mls/hr Q10H IV Last administered on 05/05/19at 07:33; Start 05/03/19 at 16:19 Ondansetron HCl (Zofran) 4 mg PRN Q4HRS PRN IV NAUSEA/VOMITING; Start 05/03/19 at 16:30 Acetaminophen (Tylenol) 650 mg PRN Q4HRS PRN PO TEMP OVER 100.4F OR MILD PAIN; Start 05/03/19 at 16:30 Al Hydroxide/Mg Hydroxide (Mylanta Plus Xs) 30 ml PRN DAILY PRN PO HEARTBURN / GAS; Start 05/03/19 at 16:30 Clonidine HCl (Catapres) 0.1 mg PRN Q6HRS PRN PO SBP>160 OR DBP>90; Start 05/03/19 at 16:30 Docusate Sodium (Colace) 100 mg PRN BID PRN PO HARD STOOLS Last administered on 05/04/19at 20:55; Start 05/03/19 at 16:30 Albuterol/ Ipratropium (Duoneb) 3 ml Q4H NEB Last administered on 05/05/19at 08:30; Start 05/03/19 at 16:30 Guaifenesin (Robitussin) 200 mg PRN Q4HRS PRN PO COUGH Last administered on 05/04/19at 15:12; Start 05/03/19 at 16:30 Lorazepam (Ativan) 0.5 mg PRN Q4HRS PRN PO ANXIETY / AGITATION; Start 05/03/19 at 16:30 Enoxaparin Sodium (Lovenox 40mg Syringe) 40 mg DAILY SQ ; Start 05/04/19 at 09:00 Hydromorphone HCl (Dilaudid) 1 mg PRN Q3HRS PRN IV SEVERE PAIN 7-10; Start 05/03/19 at 17:00 Cyclobenzaprine HCl (Flexeril) 10 mg PRN Q6HRS PRN PO MUSCLE SPASMS Last administered on 05/05/19at 07:35; Start 05/03/19 at 17:45 Ibuprofen (Motrin) 800 mg PRN Q6HRS PRN PO INFLAMMATION Last administered on 05/05/19at 07:35; Start 05/03/19 at 17:45 Tramadol HCl (Ultram) 50 mg PRN Q6HRS PRN PO PAIN Last administered on 05/04/19at 20:55; Start 05/03/19 at 17:45 Sodium Chloride 1,000 ml @ 125 mls/hr 1X ONCE IV Last administered on 05/04/19at 12:03; Start 05/04/19 at 09:45; Stop 05/04/19 at 17:44; Status DC Sodium Chloride 1,000 ml @ 1,000 mls/hr 1X ONCE IV Last administered on 05/04/19at 12:03; Start 05/04/19 at 09:45; Stop 05/04/19 at 10:44; Status DC Nicotine (Nicoderm Cq 21mg) 1 patch PRN DAILY PRN TD SMOKING CESSATION; Start 05/04/19 at 09:45 Lactobacillus Rhamnosus (Culturelle) 1 cap BID PO Last administered on 05/05/19at 07:32; Start 05/04/19 at 21:00 Vital Signs Vital Signs Date Time Temp Pulse Resp B/P (MAP) Pulse Ox O2 Delivery O2 Flow Rate FiO2 05/05/19 11:00 98.1 100 136/69 (91) 92 Room Air 98.1 05/05/19 09:11 1.0 05/05/19 07:00 18 Labs Laboratory Tests Test 05/03/19 18:00 05/04/19 04:00 Urine Collection Type Unknown Urine Color Yellow Urine Clarity Clear Urine pH 5.0 Urine Specific [place] >=1.030 Urine Protein Negative mg/dL (NEG-TRACE) Urine Glucose (UA) Negative mg/dL (NEG) Urine Ketones (Stick) Negative mg/dL (NEG) Urine Blood Trace (NEG) Urine Nitrite Negative (NEG) Urine Bilirubin Negative (NEG) Urine Urobilinogen Dipstick 0.2 mg/dL (0.2 mg/dL) Urine Leukocyte Esterase Negative (NEG) Urine RBC 1-2 /HPF (0-2) Urine WBC 5-10 /HPF (0-4) Urine Squamous Epithelial Cells Many /LPF Urine Bacteria Moderate /HPF (0-FEW) Urine Opiates Screen Neg (NEG) Urine Methadone Screen Neg (NEG) Urine Barbiturates Neg (NEG) Urine Phencyclidine Screen Neg (NEG) Urine Amphetamine/Methamphetamine Neg (NEG) Urine Benzodiazepines Screen Neg (NEG) Urine Cocaine Screen Neg (NEG) Urine Cannabinoids Screen Neg (NEG) Urine Ethyl Alcohol Neg (NEG) White Blood Count 9.9 x10^3/uL (4.0-11.0) Red Blood Count 3.85 x10^6/uL (3.50-5.40) Hemoglobin 11.3 g/dL (12.0-15.5) Hematocrit 34.1 % (36.0-47.0) Mean Corpuscular Volume 89 fL (79-100) Mean Corpuscular Hemoglobin 29 pg (25-35) Mean Corpuscular Hemoglobin Concent 33 g/dL (31-37) Red Cell Distribution Width 14.0 % (11.5-14.5) Platelet Count 247 x10^3/uL (140-400) Neutrophils (%) (Auto) 49 % (31-73) Lymphocytes (%) (Auto) 44 % (24-48) Monocytes (%) (Auto) 6 % (0-9) Eosinophils (%) (Auto) 2 % (0-3) Basophils (%) (Auto) 0 % (0-3) Neutrophils # (Auto) 4.8 x10^3/uL (1.8-7.7) Lymphocytes # (Auto) 4.3 x10^3/uL (1.0-4.8) Monocytes # (Auto) 0.6 x10^3/uL (0.0-1.1) Eosinophils # (Auto) 0.2 x10^3/uL (0.0-0.7) Basophils # (Auto) 0.0 x10^3/uL (0.0-0.2) Sodium Level 139 mmol/L (136-145) Potassium Level 3.7 mmol/L (3.5-5.1) Chloride Level 106 mmol/L (98-107) Carbon Dioxide Level 23 mmol/L (21-32) Anion Gap 10 (6-14) Blood Urea Nitrogen 12 mg/dL (7-20) Creatinine 0.9 mg/dL (0.6-1.0) Estimated GFR (Cockcroft-Gault) 65.0 BUN/Creatinine Ratio 13 (6-20) Glucose Level 139 mg/dL (70-99) Calcium Level 8.3 mg/dL (8.5-10.1) Total Bilirubin 0.3 mg/dL (0.2-1.0) Aspartate Amino Transf (AST/SGOT) 9 U/L (15-37) Alanine Aminotransferase (ALT/SGPT) 12 U/L (14-59) Alkaline Phosphatase 88 U/L (46-116) Total Protein 6.2 g/dL (6.4-8.2) Albumin 3.0 g/dL (3.4-5.0) Albumin/Globulin Ratio 0.9 (1.0-1.7) Allergies Allergies Coded Allergies Type Severity Reaction Last Updated Verified No Known Drug Allergies 05/03/19 No Disposition/Orders: D/C to Home MELVI HAQ MD May 05, 2019 13:49
[2019-05-05] MEDS ORDERED: IPRA3AMP29 NEB (13:52)
[2019-05-05] MEDS ORDERED: ACET325T9 PO (13:52)
[2019-05-05] MEDS ORDERED: LEVO750T31 PO (13:52)
[2019-05-05] MEDS ORDERED: Nicotine 21MG TD (13:52)
[2019-05-05] MEDS ORDERED: LACT1CAP19 PO (13:52)
--- NOTE | 2019-05-05 13:53 | DISCH ---
DISCHARGE INSTRUCTIONS Condition on Discharge Condition on Discharge: Stable Activity After Discharge Activity Instructions for Disc: Activity as tolerated Lifting Instructions after Dis: No heavy lifting, No pulling or pushing Driving Instructions after Dis: Do not drive Weight Bearing Status after Di: As tolerated Diet after Discharge Diet after Discharge: Regular Checks after Discharge Checks after discharge: Check blood press - daily Contacting the DR. after DC Call your doctor for: If your condition worsens Treatment/Equipment after DC Discharge Respiratory Equipmen: Nebulizer MELVI HAQ MD May 05, 2019 13:53
--- NOTE | 2019-05-05 14:18 | NUR ---
Discharge Note: [facility] [address] [place] [address] Discharge instructions and discharge home medications reviewed with Patient and a copy given. All questions have been answered and understanding verbalized. The following instructions and handouts were given: d/c instructions Discontinued lines and drains: Peripheral IV intact. Patient discharged to Home or Self Care with Spouse via Ambulated
== END 2019-05-05 14:20 | disposition home or self-care (01) | DRG 177 ==
LOC: ER 11:23 → 6 SOUTH 14:18
PROVIDERS: ADMIT Family Medicine; ATTEND Family Medicine
DX: J15.6 Pneumonia due to other Gram-negative bacteria (principal); J96.01 Acute respiratory failure with hypoxia; S22.41XA Multiple fractures of ribs, right side, initial encounter for closed fracture; J98.11 Atelectasis; F17.210 Nicotine dependence, cigarettes, uncomplicated; E86.0 Dehydration; J43.9 Emphysema, unspecified; I95.9 Hypotension, unspecified; W19.XXXA Unspecified fall, initial encounter; Y93.89 Activity, other specified; Y92.89 Other specified places as the place of occurrence of the external cause; Y99.8 Other external cause status; Z90.49 Acquired absence of other specified parts of digestive tract; Z82.49 Family history of ischemic heart disease and other diseases of the circulatory system
CPT/HCPCS: 36415; 71045; 71100; 71275; 80053; 80307; 81001; 83605; 83880; 84484; 84702; 85025; 85610; 87040; 87070; 87086; 87205; 87449; 93005; 94618; 94640; 96374; 96375; 96376; J0696; J1650; J2405; J2543; J3010; J7030; J7620; Q9967; 99285-25; G0378